=== PATIENT | female | born 1985 | race Caucasian/White ===

== ENCOUNTER 2017-11-25 11:13 | Inpatient (IN) | payer BC ==
[2017-11-25] MEDS ORDERED: NA CHLORIDE 0.9% 1,000 ML ONE (12:15)
[2017-11-25] MEDS ORDERED: ONDANSETRON 4 MG/2 ML VIAL ONE ×3 (12:15→16:42)
[2017-11-25] MEDS ORDERED: MORPHINE 4 MG/ML SYR ONE ×3 (12:15→16:42)
[2017-11-25 12:34] LABS: Absolute Lymphocytes (CBC) 1.4 K/uL (0.7-4.9); Absolute Monocytes 0.3 K/uL (0.1-1.3); Absolute Neutrophil 3.9 K/uL (1.8-8.0); Basophils % 0.3 % (0-1.3); Eosinophils % 1.3 % (0-4.4); Hematocrit 41.7 % (36.0-45.0); MCH 30.1 pg (27.0-35.0); MCV 86.7 fL (80-100); MPV 8.2 fL (7.6-11.3); Monocytes % 4.7 % (3.3-12.3); RBC Red Blood Cell Count 4.81 M/uL (3.86-4.86)
[2017-11-25 12:47] LABS: Urine Bacteria <20 /HPF (<20); Urine Culture Reflex Order REFLEXED; Urine Mucus 1+ /HPF (NONE SEEN); Urine RBC <5 /HPF (NONE SEEN)
[2017-11-25 12:58] LABS: Albumin 3.9 g/dL (3.4-5.0); Bilirubin Total 0.4 mg/dL (0.2-1.0); Potassium 4.4 mmol/L (3.5-5.1); Protein, Total 7.7 g/dL (6.4-8.2)
[2017-11-25 13:12] LABS: Urine Blood NEGATIVE (NEG); Urine Glucose NEGATIVE (NEG); Urine Protein NEGATIVE (NEG); Urine pH 6.5 (5.0-7.0)
--- NOTE | 2017-11-25 14:40 | RAD REPORT ---
EXAM DESCRIPTION: CTAbdomen Pelvis W Contrast - 11/25/2017 2:14 pm CLINICAL HISTORY: Abdominal pain. large hernia, possible obstruction COMPARISON: CTSTONE PROTOCOL dated 02/09/2013 TECHNIQUE: Biphasic CT imaging of the abdomen and pelvis was performed with 100 ml non-ionic IV cont rast. All CT scans are performed using dose optimization technique as appropriate and may include automated exposure control or mA/KV adjustment according to patient size. FINDINGS: The lung bases are clear. Mild diffuse fatty liver is present. Gastric banding is noted. The spleen, pancreas and adrenal gland s are normal. Mild atrophy of the right kidney is seen. Left kidney appears unremarkable A large complex right-sided flank hernia is identified. The hernia contains large bowel, omental fat and small bowel. Several of the small bowel loops appear mildly dilated. There is some inflammation i n the hernia sac. Anatomy within the hernia is quite distorted making full assessment quite challengi ng. A thick-walled rounded lesion is also noted along the lateral margin of the hernia sac of unclear etiology and significance. No free intraperitoneal air is seen. No suspicious bony findings. IMPRESSION: Large complex right-sided flank hernia noted containing large bowel, omental fat and sma ll bowel. Several of the small bowel loops appear mildly dilated which could indicate a mild bowel ob struction.
--- NOTE | 2017-11-25 15:57 | ER ---
Nurse's Notes [facility] Name: Janine Blood Age: 32 yrs Sex: Female : 1985 Arrival Date: 11/25/2017 Time: 11:17 Bed 30 Private MD: Diagnosis: small bowel obstruction Presentation: 11/25 11:40 Presenting complaint: Patient states: i am a lot of pain in my stomach, it started a hj day before yesterday, hx of hernia; reports bloody stools; reports nausea and vomiting; reports diarrhea;. Transition of care: patient was not received from another setting of care. Onset of symptoms was November 25, 2017. Risk Assessment: Do you want to hurt yourself or someone else? Patient reports no desire to harm self or others. Initial Sepsis Screen: Does the patient meet any 2 criteria? No. Patient's initial sepsis screen is negative. Does the patient have a suspected source of infection? No. Patient's initial sepsis screen is negative. Care prior to arrival: None. 11:40 Method Of Arrival: Ambulatory 11:40 Acuity: GOLDEN 3 hj Triage Assessment: 11:44 General: Appears in no apparent distress. uncomfortable, Behavior is calm, cooperative, hj appropriate for age. Pain: Complains of pain in abdomen Pain currently is 10 out of 10 on a pain scale. GI: Reports lower abdominal pain, nausea, vomiting. 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 - Social history:: Smoking status: Patient/guardian denies using tobacco, Patient/guardian denies using alcohol. - Ebola Screening: : Patient negative for fever greater than or equal to 101.5 degrees Fahrenheit, and additional compatible Ebola Virus Disease symptoms Patient denies exposure to infectious person Patient denies travel to an Ebola-affected area in the 21 days before illness onset. Screenin:44 Abuse screen: Denies threats or abuse. Denies injuries from another. Nutritional hj screening: No deficits noted. Tuberculosis screening: No symptoms or risk factors identified. Fall Risk None identified. Assessment: 12:05 General: Appears uncomfortable, obese, Behavior is cooperative. Pain: Complains of pain iw in right upper quadrant, right lower quadrant and left lower quadrant. Neuro: Level of Consciousness is awake, alert, obeys commands, Oriented to person, place, time, situation, Moves all extremities. Full function. Cardiovascular: Patient's skin is warm and dry. Respiratory: Respiratory effort is even, unlabored. GI: Abdomen is round obese, Pt is actively vomiting clear fluid, pt has large right abdominal hernia, tender to palpation hernia has been there X 5 years Bowel sounds present X 4 quads. Abdomen is tender to palpation in right lower quadrant Reports lower abdominal pain, upper abdominal pain. : Reports burning with urination. Derm: Skin is pink, warm \T\ dry. normal. Musculoskeletal: Range of motion: intact in all extremities. 12:37 Reassessment: pt finished drinking contrast. iw 12:48 Reassessment: Patient and/or family updated on plan of care and expected duration. Pain aa5 level reassessed. Patient is alert, oriented x 3, equal unlabored respirations, skin warm/dry/pink. Patient states feeling better. Pain: Pain currently is 5 out of 10 on a pain scale. 13:52 Reassessment: Patient and/or family updated on plan of care and expected duration. Pain aa5 level reassessed. Patient is alert, oriented x 3, equal unlabored respirations, skin warm/dry/pink. Pt taken to CT . Pain: Pain currently is 5 out of 10 on a pain scale. 14:24 Reassessment: Patient and/or family updated on plan of care and expected duration. Pain aa5 level reassessed. Patient is alert, oriented x 3, equal unlabored respirations, skin warm/dry/pink. Pt requesting pain and nausea medication, pt back from CT via wheelchair. . Pain: Pain currently is 10 out of 10 on a pain scale. GI: Reports nausea. 14:25 Reassessment: MD notified of pt's request for anti-nausea and pain medication. . aa5 16:09 Reassessment: patient seen by hospitalist on duty and advised to wait for disposition mg2 either to be admitted here or transfer to other facility. Vital Signs: 11:44 BP 130 / 109; Pulse 79; Resp 18; Temp 98.1(O); Pulse Ox 98% on R/A; Weight 132.9 kg; hj Height 5 ft. 4 in. (162.56 cm); Pain 10/10; 12:50 BP 134 / 82; Pulse 75; Resp 16 S; Pulse Ox 97% on R/A; aa5 14:29 BP 141 / 87; Pulse 70; Resp 16 S; Pulse Ox 97% on R/A; aa5 16:03 BP 140 / 91; Pulse 75; Resp 18; Pulse Ox 95% on R/A; Pain 2/10; mg2 17:00 BP 134 / 90; Pulse 73; Resp 18; Pulse Ox 100% on R/A; Pain 4/10; mg2 18:46 BP 140 / 99; Pulse 90; Resp 18; Temp 98(O); Pulse Ox 98% on R/A; Pain 3/10; mg2 20:04 BP 137 / 96; Pulse 73; Resp 18; Pulse Ox 99% on R/A; mg2 11:44 Body Mass Index 50.29 (132.90 kg, 162.56 cm) hj ED Course: 11:17 Patient arrived in ED. rg4 11:42 Triage completed. hj 11:44 Arm band placed on right wrist. hj 11:46 Patient has correct armband on for positive identification. Placed in gown. Bed in low hj position. Call light in reach. Side rails up X 1. Adult w/ patient. 11:53 Cooper Modi MD is Attending Physician. ps1 11:58 EKG done, by vein access technician. reviewed by Jovanny Kelley MD. at1 12:05 Pamela Kwon RN is Primary Nurse. iw 12:06 Inserted saline lock: 20 gauge in right antecubital area, using aseptic technique. iw Blood collected. 14:13 CT completed. Patient tolerated procedure well. Patient moved to CT via wheelchair. kw1 Patient moved back from CT. 14:15 CT Abd/Pelvis - W/Contrast In Process Unspecified. EDMS 14:59 Report given to TRE Savage. aa5 15:56 Aris Beckford DO is Hospitalizing Provider. ps1 16:55 First set of blood cultures drawn from right A/C via the IV. Flushed and discarded 10ml jp3 of blood prior to collecting blood sample. 17:20 Second set of blood cultures drawn drawn from left A/C via 21g butterfly needle. jp3 19:39 Primary Nurse role handed off by Pamela Kwon RN rg2 19:41 Isrrael Cooney, TRE is Primary Nurse. mg2 20:08 No provider procedures requiring assistance completed. Patient admitted, IV remains in mg2 place. Administered Medications: 12:24 Drug: morphine 4 mg Route: IVP; Site: right antecubital; iw 12:35 Follow up: Response: No adverse reaction aa5 12:24 Drug: Zofran 4 mg Route: IVP; Site: right antecubital; iw 12:35 Follow up: Response: No adverse reaction aa5 14:27 Drug: morphine 4 mg Route: IVP; Site: right antecubital; aa5 16:11 Follow up: Response: No adverse reaction; Pain is decreased mg2 14:27 Drug: Zofran 4 mg Route: IVP; Site: right antecubital; aa5 16:10 Follow up: Response: No adverse reaction; Nausea is decreased mg2 16:42 Drug: Zofran 4 mg Route: IVP; Site: right antecubital; mg2 18:47 Follow up: Response: No adverse reaction; Nausea is decreased mg2 16:43 Drug: morphine 4 mg Route: IVP; Site: right antecubital; mg2 18:47 Follow up: Response: No adverse reaction; Pain is decreased mg2 Outcome: 15:56 Decision to Hospitalize by Provider. ps1 20:15 Admitted to Med/surg mg2 20:15 Admitted to Med/surg accompanied by tech, via wheelchair, room 208, with chart, Report called to Nurse Kimberly 20:15 Condition: stable 20:15 Instructed on the need for admit, Demonstrated understanding of instructions. 20:22 Patient left the ED. mg2 Signatures: Dispatcher [employer] EDMS Gee Gore rg2 Pamela Kwon RN RN iw Chayito Adame RN RN aa5 Marleni askew, middleware administrator EKG Tat1 Ramin Gonzáles RN RN hj Garcia, Rubi rg4 Cooper Modi MD MD ps1 Keily Bowers kw1 Isrrael Cooney, TRE RN mg2 Irving Olson jp3 Corrections: (The following items were deleted from the chart) 11:50 11:44 Pulse 79bpm; Resp 18bpm; Pulse Ox 98% RA; Temp 98.1F Oral; 132.9 kg; Height 5 ft. hj 4 in.; BMI: 50.2; Pain 02/05; hj 11:51 11:44 Pulse 79bpm; Resp 18bpm; Pulse Ox 98% RA; Temp 98.1F Oral; 132.9 kg; Height 5 ft. hj 4 in.; BMI: 50.2; Pain 02/05; hj
--- NOTE | 2017-11-25 15:57 | EDPHYS ---
Physician Documentation [facility] Name: Janine Blood Age: 32 yrs Sex: Female : 1985 Arrival Date: 11/25/2017 Time: 11:17 Bed 30 Private MD: ED Physician Cooper Modi HPI: 11/25 15:23 This 32 yrs old Female presents to ER via Ambulatory with complaints of ps1 Vomiting, Bloody Stools. 15:23 patient has a large abdominal hernia. has not had repair 2/2 lack of insurance. Now has ps1 abdominal pain, n,v, and streaky bloody stools. Pain rated as moderate to severe. Lack of appetite. . 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 - Social history:: Smoking status: Patient/guardian denies using tobacco, Patient/guardian denies using alcohol. - Ebola Screening: : Patient negative for fever greater than or equal to 101.5 degrees Fahrenheit, and additional compatible Ebola Virus Disease symptoms Patient denies exposure to infectious person Patient denies travel to an Ebola-affected area in the 21 days before illness onset. ROS: 15:23 Constitutional: Negative for fever, chills, and weight loss, Eyes: Negative for injury, ps1 pain, redness, and discharge, Neck: Negative for injury, pain, and swelling, Cardiovascular: Negative for chest pain, palpitations, and edema, Respiratory: Negative for shortness of breath, cough, wheezing, and pleuritic chest pain, Back: Negative for injury and pain, MS/Extremity: Negative for injury and deformity, Skin: Negative for injury, rash, and discoloration, Neuro: Negative for headache, weakness, numbness, tingling, and seizure. 15:23 Abdomen/GI: Positive for abdominal pain, nausea, vomiting, and diarrhea, abdominal cramps, rectal bleeding. Exam: 15:23 Constitutional: This is a well developed, well nourished patient who is awake, alert, ps1 and in no acute distress. Head/Face: Normocephalic, atraumatic. Eyes: Pupils equal round and reactive to light, extra-ocular motions intact. Lids and lashes normal. Conjunctiva and sclera are non-icteric and not injected. Chest/axilla: Normal chest wall appearance and motion. Nontender with no deformity. No lesions are appreciated. Cardiovascular: Regular rate and rhythm. No gallops, murmurs, or rubs. Normal PMI, no JVD. No pulse deficits. Respiratory: Lungs have equal breath sounds bilaterally, clear to auscultation and percussion. No rales, rhonchi or wheezes noted. No increased work of breathing, no retractions or nasal flaring. 15:23 Abdomen/GI: Inspection: distension, obese large extraabdominal hernia. , Bowel sounds: high pitched, Palpation: mild abdominal tenderness. Vital Signs: 11:44 BP 130 / 109; Pulse 79; Resp 18; Temp 98.1(O); Pulse Ox 98% on R/A; Weight 132.9 kg; hj Height 5 ft. 4 in. (162.56 cm); Pain 10/10; 12:50 BP 134 / 82; Pulse 75; Resp 16 S; Pulse Ox 97% on R/A; aa5 14:29 BP 141 / 87; Pulse 70; Resp 16 S; Pulse Ox 97% on R/A; aa5 16:03 BP 140 / 91; Pulse 75; Resp 18; Pulse Ox 95% on R/A; Pain 2/10; mg2 17:00 BP 134 / 90; Pulse 73; Resp 18; Pulse Ox 100% on R/A; Pain 4/10; mg2 18:46 BP 140 / 99; Pulse 90; Resp 18; Temp 98(O); Pulse Ox 98% on R/A; Pain 3/10; mg2 20:04 BP 137 / 96; Pulse 73; Resp 18; Pulse Ox 99% on R/A; mg2 11:44 Body Mass Index 50.29 (132.90 kg, 162.56 cm) MDM: 11:58 Patient medically screened. ps1 11/25 12:03 Order name: Amylase, Serum; Complete Time: 13:05 ps1 11/25 12:03 Order name: CBC with Diff; Complete Time: 12:54 ps1 11/25 12:03 Order name: Lipase; Complete Time: 13:05 [facility] 11/25 12:03 Order name: Urine Microscopic Only; Complete Time: 12:54 [facility] 11/25 12:03 Order name: CMP; Complete Time: 13:05 [facility] 11/25 12:03 Order name: Type And Screen; Complete Time: 13:05 [facility] 11/25 12:03 Order name: CT Abd/Pelvis - W/Contrast; Complete Time: 14:45 [facility] 11/25 12:16 Order name: Urine Dipstick--Ancillary (enter results); Complete Time: 13:20 [facility] 11/25 12:16 Order name: Urine --Ancillary (enter results); Complete Time: 13:20 [facility] 11/25 12:49 Order name: Urine Culture EDGA 11/25 12:56 Order name: ABO/RH no charge; Complete Time: 13:05 [facility] 11/25 12:03 Order name: Urine Test (obtain specimen); Complete Time: 12:24 [facility] 11/25 12:03 Order name: IV Saline Lock; Complete Time: 12:07 [facility] 11/25 12:03 Order name: Labs collected and sent; Complete Time: 12:24 [facility] 11/25 12:03 Order name: Urine Dipstick-Ancillary (obtain specimen); Complete Time: 12:07 [facility] Administered Medications: 12:24 Drug: morphine 4 mg Route: IVP; Site: right antecubital; iw 12:35 Follow up: Response: No adverse reaction aa5 12:24 Drug: Zofran 4 mg Route: IVP; Site: right antecubital; iw 12:35 Follow up: Response: No adverse reaction aa5 14:27 Drug: morphine 4 mg Route: IVP; Site: right antecubital; aa5 16:11 Follow up: Response: No adverse reaction; Pain is decreased mg2 14:27 Drug: Zofran 4 mg Route: IVP; Site: right antecubital; aa5 16:10 Follow up: Response: No adverse reaction; Nausea is decreased mg2 16:42 Drug: Zofran 4 mg Route: IVP; Site: right antecubital; mg2 18:47 Follow up: Response: No adverse reaction; Nausea is decreased mg2 16:43 Drug: morphine 4 mg Route: IVP; Site: right antecubital; mg2 18:47 Follow up: Response: No adverse reaction; Pain is decreased mg2 Disposition: 11/25/17 15:56 Hospitalization ordered by Aris Beckford for Inpatient Admission. Preliminary diagnosis is small bowel obstruction. - Bed requested for Telemetry/MedSurg (Inpatient). - Status is Inpatient Admission. mg2 - Condition is Stable. - Problem is new. - Symptoms are unchanged. UTI on Admission? No Signatures: Dispatcher [employer] EDMS Gee Gore rg2 Pamela Kwon, RN RN iw Chayito Adame, RN RN aa5 Ramin Gonzáles, RN RN hj Cooper Modi MD MD ps1 Isrrael Cooney RN RN mg2 Corrections: (The following items were deleted from the chart) 19:53 15:56 Hospitalization Ordered by Aris Beckford DO for Inpatient Admission. Preliminary rg2 diagnosis is small bowel obstruction. Bed requested for Telemetry/MedSurg (Inpatient). Status is Inpatient Admission. Condition is Stable. Problem is new. Symptoms are unchanged. UTI on Admission? No. ps1 20:22 19:53 11/25/2017 15:56 Hospitalization Ordered by Aris Beckford DO for Inpatient mg2 Admission. Preliminary diagnosis is small bowel obstruction. Bed requested for Telemetry/MedSurg (Inpatient). Status is Inpatient Admission. Condition is Stable. Problem is new. Symptoms are unchanged. UTI on Admission? No. rg2
[2017-11-25] MEDS ORDERED: MORPHINE 4 MG/ML SYR IV PRN (16:31)
[2017-11-25] MEDS ORDERED: ACETAMINOPHEN 650MG/RECT SUPP PR PRN (16:31)
--- NOTE | 2017-11-25 17:03 | P.HP ---
Certification for Inpatient Patient admitted to: Inpatient With expected LOS: >2 Midnights Patient will require the following post-hospital care: None Practitioner: I am a practitioner with admitting privileges, knowledge of patient current condition, hospital course, and medical plan of care. Services: Services provided to patient in accordance with Admission requirements found in Title 42 Section 412.3 of the Code of Federal Regulations Patient History Date of Service: 11/25/17 Primary Care Provider: Dr. Gates([place], [place]) Reason for admission: Abdominal pain History of Present Illness: 32-year-old female presented emergency room with abdominal pain. Patient has history of a large complex ventral hernia on the right side. Patient reported abdominal pain, nausea and vomiting over the last 2 days. Pain got worse today. She rated the pain about a 10/10. She continued to have nausea and vomiting. She reports eating some popcorn last night. She denies any significant diarrhea. Patient came to the ER for further evaluation. In the ER patient was evaluated. Initial CBC and BMP unremarkable. CT scan shows a large complex right-sided flank hernia containing large bowel, omental fat and small bowel. Several small loops of bowel mildly dilated indicating mild bowel obstruction. Due to findings patient was admitted for treatment. I was asked to admit the patient. When I saw the patient ER, she appeared comfortable. Pain was noted to the right flank area. Patient with history of brain tumors with previous surgery. - Past Medical/Surgical History Diabetic: No -: Morbid obesity -: Complex right flank hernia -: History brain tumor with prior surgery -: Reflux from kidney -: Brain surgery to remove tumor -: Kidney surgery -: -: Hernia repair Psychosocial/ Personal History: The patient is . She has 2 children. 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 - Family History Father History Unknown: Yes Mother -: Heart disease, Hypertension, Cancer (Lung cancer) - Social History Smoking Status: Never smoker Alcohol use: Yes CD- Drugs: No Caffeine use: Yes Place of Residence: Home Review of Systems General: Weakness, As per HPI Eyes: Unremarkable ENT: Unremarkable Respiratory: Unremarkable Cardiovascular: Unremarkable Gastrointestinal: Nausea, Vomiting, Abdominal Pain, As per HPI Genitourinary: Unremarkable Musculoskeletal: Unremarkable Integumentary: Unremarkable Neurological: Unremarkable Lymphatics: Unremarkable Physical Examination - Physical Exam General: Alert, In no apparent distress, Oriented x3, Cooperative HEENT: Atraumatic, Normocephalic, PERRLA, Mucous membr. moist/pink Neck: Supple, No Thyromegaly Respiratory: Clear to auscultation bilaterally, Normal air movement Cardiovascular: Normal pulses, Regular rate/rhythm Gastrointestinal: Normal bowel sounds, Soft and benign, Non-distended, Other ( Patient morbidly obese with large pannus), Tenderness (Large flank hernia noted to the right side. Pain noted with palpation. No ecchymosis noted to the skin. ) Musculoskeletal: No erythema, No tenderness, No warmth Integumentary: No erythema, No warmth, No cyanosis Neurological: Normal speech, Normal strength at 5/5 x4 extr, Normal tone, Normal affect Lymphatics: No axilla or inguinal lymphadenopathy - Studies Laboratory Data (last 24 hrs) 11/25/17 12:05: WBC 5.7, Hgb 14.5, Hct 41.7, Plt Count 207 11/25/17 12:05: Sodium 140, Potassium 4.4, BUN 11, Creatinine 1.00, Glucose 99, Total Bilirubin 0.4, AST 25, ALT 39, Alkaline Phosphatase 56, Amylase 30, Lipase 112 Assessment and Plan - Problems (Diagnosis) (1) Small bowel obstruction Current Visit: Yes Status: Acute Plan: Patient with complex right flank hernia. Mild small-bowel obstruction noted. Patient will be admitted. Will provide medication for pain. Will continue IV fluids. Case discussed at length with surgery. Surgery will evaluate the patient tonight. Will need to monitor for any changes. If patient with increased pain or changes patient may require surgical intervention. I will turn the service over to Dr. Richardson tomorrow. I will go over the plan of care with her. (2) Abdominal hernia Current Visit: Yes Status: Chronic Plan: Continue as above Qualifiers: Hernia type: other abdominal hernia Obstruction and gangrene presence: with obstruction but without gangrene Qualified Code(s): K45.0 - Other specified abdominal hernia with obstruction, without gangrene (3) Obesity Current Visit: Yes Status: Chronic Plan: Will need a calculate BMI. Lifestyle modification education will be provided. Patient may benefit with bariatric surgery in the future. Discharge Plan: Home Plan to discharge in: 72 Hours - Advance Directives Does patient have a Living Will: No Does patient have a Durable POA for Healthcare: No - Code Status/Comfort Care Code Status Assessed: Yes Time Spent Managing Pts Care (In Minutes): 55
[2017-11-25] MEDS ORDERED: MINERAL OIL 30 ML UCUP GT ONE (20:53)
[2017-11-25] MEDS ORDERED: ONDANSETRON 4 MG/2 ML VIAL IV PRN (20:53)
--- NOTE | 2017-11-25 20:53 | P.CNS ---
Date of Consult: 11/25/17 PC: This 5o-year-old female presents emergency room with abdominal pain for diagnosis and treatment. HPC: Patient has been having severe abdominal pain since yesterday. Ate some popcorn. Shortly after she ate, she noted she was having severe hard cramping abdominal pain. Actually located more in her back then in her side. Since then has been on comfortable, was vomiting earlier, now just continuously belching. PMH: History of a brain tumor PSHx: Previous pituitary surgery and radiation therapy. Had a nephrectomy in the past, 5 years ago developed a hernia on that side. SOC: Allergic to sulfa, trimethoprim, SYS REVIEW: No cough, wheeze, shortness of breath. No recent chest pain or palpitations. States that she is being evaluated for possible pressure on her optic nerve, but has no changes in her vision that she could described. Hernia has been stable for this last 5 months. O/E awake alert uncomfortable at the moment HEENT: Within normal limits Chest: Chest movement equal bilaterally ABD: Patient has a large hernia on her right side. On palpation it is soft, minimal tenderness, but is not reducible. LOCO: Intact DATA: CT scan reviewed IMPRESSION: Possible early small-bowel obstruction PLAN: Keep NPO for now. Will give the patient some pain medicine and some Valium. Will also add in some mineral oil. I am anticipating this to resolve spontaneously. She does not require surgery tonight.
[2017-11-25] MEDS: ONDANSETRON 4 MG/2 ML VIAL IV PRN (21:16)
[2017-11-25] MEDS: NA CHLORIDE 0.9% 1,000 ML IV SCH (21:16)
[2017-11-25] MEDS: MORPHINE 4 MG/ML SYR IV PRN (21:17)
[2017-11-25] MEDS: ENOXAPARIN 40 MG/0.4 ML SQ SCH (21:24)
[2017-11-25] MEDS ORDERED: DIAZEPAM 5 MG TABLET PO ONE (22:46)
[2017-11-25] MEDS ORDERED: SODIUM CHLORIDE 0.9% 10ML INJ IV PRN (22:46)
[2017-11-26 00:42] LABS: Barbiturates NEGATIVE (NEGATIVE); Benzodiazepines NEGATIVE (NEGATIVE); Cocaine NEGATIVE (NEGATIVE); METHAMPHETAM NEGATIVE (NEGATIVE); Methadone NEGATIVE (NEGATIVE); Opiates POSITIVE (NEGATIVE); Phencyclidine NEGATIVE (NEGATIVE); THC Cannibis POSITIVE (NEGATIVE)
[2017-11-26] MEDS: MORPHINE 4 MG/ML SYR IV PRN ×2 (00:47→05:46)
[2017-11-26 00:49] LABS: Urine Appearance CLEAR; Urine Bilirubin NEGATIVE (NEG); Urine Blood NEGATIVE (NEG); Urine Color YELLOW; Urine Glucose NEGATIVE (NEG); Urine Protein NEGATIVE (NEG); Urine Specific Gravity 1.025 (1.005-1.030); Urine Urobilinogen 0.2 mg/dL (0.2-1.0)
[2017-11-26 00:50] LABS: Urine Microscopic Reflex ORDER UMIC
[2017-11-26 01:17] LABS: Urine Culture Reflex Order NOT NEEDED
[2017-11-26 01:18] LABS: Urine Bacteria <20 /HPF (<20); Urine RBC <5 /HPF (NONE SEEN)
[2017-11-26] MEDS: ONDANSETRON 4 MG/2 ML VIAL IV PRN ×2 (05:42→11:24)
[2017-11-26] MEDS: NA CHLORIDE 0.9% 1,000 ML IV SCH ×3 (05:42→22:20)
[2017-11-26 05:48] LABS: Absolute Lymphocytes (CBC) 1.3 K/uL (0.7-4.9); Absolute Monocytes 0.3 K/uL (0.1-1.3); Absolute Neutrophil 2.9 K/uL (1.8-8.0); Basophils % 0.2 % (0-1.3); Eosinophils % 3.3 % (0-4.4); Hematocrit 36.1 % (36.0-45.0); Lymphocytes % 27.9 % (15.3-44.8); MCH 30.3 pg (27.0-35.0); MCV 86.9 fL (80-100); Monocytes % 5.7 % (3.3-12.3); RBC Red Blood Cell Count 4.15 M/uL (3.86-4.86)
[2017-11-26 05:57] LABS: Magnesium 2.3 mg/dL (1.8-2.4); Potassium 4.1 mmol/L (3.5-5.1); Thyroid Stimulating Hormone 0.32 uIU/mL (0.36-3.74)
[2017-11-26] MEDS ORDERED: MINERAL OIL 30 ML UCUP GT ONE (07:38)
[2017-11-26] MEDS: ENOXAPARIN 40 MG/0.4 ML SQ SCH (09:26)
[2017-11-26] MEDS: PANTOPRAZOLE 40 MG INJ IVP SCH (09:26)
[2017-11-26] MEDS: LORAZEPAM 1 MG TABLET PO PRN ×2 (11:22→17:16)
--- NOTE | 2017-11-26 13:58 | P.PN ---
Subjective Date of Service: 11/26/17 Primary Care Provider: Dr. Gates([place], [place]) Chief Complaint: Abdominal pain Subjective: No new changes, Tolerating diet, Doing well Review of Systems General: As per HPI Physical Examination - Vital Signs Temperature: 97.6 F Blood Pressure: 137/79 Pulse: 71 Respirations: 16 Pulse Ox (%): 96 - Physical Exam General: Alert, In no apparent distress HEENT: Atraumatic, PERRLA, EOMI Neck: Supple, JVD not distended Respiratory: Clear to auscultation bilaterally, Normal air movement Cardiovascular: Regular rate/rhythm, Normal S1 S2 Gastrointestinal: Normal bowel sounds, No tenderness Musculoskeletal: No tenderness Integumentary: No rashes Neurological: Normal speech, Normal tone, Normal affect Lymphatics: No axilla or inguinal lymphadenopathy - Studies Medications List Reviewed: Yes Assessment & Plan - Problems (Diagnosis) (1) Small bowel obstruction Current Visit: Yes Status: Acute Plan: Large Complex hernia with Bowel Obstruction -Surgery Consulted. Appreciated Reccs -IV fluids and CLD -Awaiting clinical Improvement (2) Cannabis abuse Current Visit: Yes Status: Acute Plan: UDS + for THC -Bowel Ileus is a possibility -Pt educated Extensively on diet and exercise and abstain from THC (3) Abdominal hernia Current Visit: Yes Status: Chronic Plan: See#1 -Nonsurgical At this time per Surgery Qualifiers: Hernia type: other abdominal hernia Obstruction and gangrene presence: with obstruction but without gangrene Qualified Code(s): K45.0 - Other specified abdominal hernia with obstruction, without gangrene (4) Obesity Current Visit: Yes Status: Chronic Qualifiers: Obesity type: due to excess calories Obesity classification: adult class 3 (BMI >= 40) Serious obesity comorbidity presence: without serious comorbidity Body mass index: BMI 50.0-59.9 Qualified Code(s): E66.01 - Morbid (severe) obesity due to excess calories; Z68.43 - Body mass index (BMI) 50-59.9 , adult Discharge Plan: Other Plan to discharge in: 24 Hours - Code Status/Comfort Care Code Status Assessed: Yes Critical Care: No
[2017-11-26] MEDS: ACETAMINOPHEN 500 MG TAB PO PRN (22:20)
[2017-11-27] MEDS: LORAZEPAM 1 MG TABLET PO PRN (03:40)
[2017-11-27] MEDS: ONDANSETRON 4 MG/2 ML VIAL IV PRN (05:02)
[2017-11-27] MEDS: ACETAMINOPHEN 500 MG TAB PO PRN ×2 (05:03→08:56)
[2017-11-27 05:30] LABS: Absolute Lymphocytes (CBC) 1.4 K/uL (0.7-4.9); Absolute Monocytes 0.4 K/uL (0.1-1.3); Absolute Neutrophil 7.3 K/uL (1.8-8.0); Basophils % 0.6 % (0-1.3); Eosinophils % 0.5 % (0-4.4); Hematocrit 43.7 % (36.0-45.0); Lymphocytes % 15.6 % (15.3-44.8); MCV 85.2 fL (80-100); MPV 8.2 fL (7.6-11.3); Monocytes % 4.5 % (3.3-12.3); RBC Red Blood Cell Count 5.13 M/uL (3.86-4.86)
[2017-11-27 05:55] LABS: Magnesium 2.5 mg/dL (1.8-2.4); Potassium 3.7 mmol/L (3.5-5.1)
[2017-11-27] MEDS ORDERED: KCL 20 MEQ/100 mL IVPB 20 MEQ/100 ML BAG IV SCH (06:00)
[2017-11-27] MEDS ORDERED: MORPHINE 4 MG/ML SYR IV PRN (08:54)
[2017-11-27] MEDS ORDERED: MORPHINE 2 MG/ML SYR IV PRN (08:54)
[2017-11-27] MEDS ORDERED: DIAZEPAM 5 MG TABLET PO ONE ×2 (08:55→20:06)
[2017-11-27] MEDS: PANTOPRAZOLE 40 MG INJ IVP SCH (08:57)
[2017-11-27] MEDS: ENOXAPARIN 40 MG/0.4 ML SQ SCH (08:57)
[2017-11-27] MEDS: NA CHLORIDE 0.9% 1,000 ML IV SCH ×3 (08:57→21:54)
--- NOTE | 2017-11-27 09:05 | P.PN ---
Date of Service: 11/27/17 S: Patient is sometime SC and vomiting last night. Was taken off refer pain medicine. Today she feels slightly better, but still having discomfort. O: Hernia sac feels softer today. Has occasional bowel sounds and it A: Seems to be improved. I am reluctant to place a nasogastric tube in view of the patient's prior pituitary surgery. P: Resume patient's pain medicine, encourage patient ambulate, I will try to transfer patient to hernia Center.
[2017-11-27] MEDS: MORPHINE 4 MG/ML SYR IV PRN ×4 (09:43→21:52)
--- NOTE | 2017-11-27 13:36 | P.PN ---
Subjective Date of Service: 11/27/17 Primary Care Provider: Dr. Gates([place], [place]) Chief Complaint: Abdominal pain Patient seen and examined at bedside with RN. Chart reviewed. Case discussed with surgery. Surgery will be resuming care for this patient as primary providers here in the hospital. Medicine team will be consulted in available for any medical management at this time. Review of Systems General: As per HPI Physical Examination - Vital Signs Temperature: 98.1 F Blood Pressure: 115/64 Pulse: 76 Respirations: 20 Pulse Ox (%): 95 - Physical Exam General: Alert, In no apparent distress, Obese HEENT: Atraumatic, PERRLA, EOMI Neck: Supple, JVD not distended Respiratory: Clear to auscultation bilaterally, Normal air movement Cardiovascular: Regular rate/rhythm, Normal S1 S2 Gastrointestinal: Normal bowel sounds, No tenderness Musculoskeletal: No tenderness Integumentary: No rashes Neurological: Normal speech, Normal tone, Normal affect Lymphatics: No axilla or inguinal lymphadenopathy - Studies Microbiology Data (last 24 hrs): 11/25/17 12:10 Clean Catch Urine [place] Count - Final <10,000 CFU/ML. 11/25/17 12:10 Clean Catch Urine - Final Medications List Reviewed: Yes Assessment & Plan - Problems (Diagnosis) (1) Small bowel obstruction Onset Date: 11/26/17 Current Visit: Yes Status: Acute Plan: Large Complex hernia with Bowel Obstruction -Surgery primary now. -IV fluids and CLD -Awaiting transfer to the Higher Level of care for hernia repair (2) Cannabis abuse Onset Date: 11/26/17 Current Visit: Yes Status: Acute Plan: UDS + for THC -Bowel Ileus is a possibility -Pt educated Extensively on diet and exercise and abstain from THC (3) Abdominal hernia Onset Date: 11/26/17 Current Visit: Yes Status: Chronic Plan: See#1 -Awaiting transfer to Higher level of care Qualifiers: Hernia type: other abdominal hernia Obstruction and gangrene presence: with obstruction but without gangrene Qualified Code(s): K45.0 - Other specified abdominal hernia with obstruction, without gangrene (4) Obesity Onset Date: 11/26/17 Current Visit: Yes Status: Chronic Qualifiers: Obesity type: due to excess calories Obesity classification: adult class 3 (BMI >= 40) Serious obesity comorbidity presence: without serious comorbidity Body mass index: BMI 50.0-59.9 Qualified Code(s): E66.01 - Morbid (severe) obesity due to excess calories; Z68.43 - Body mass index (BMI) 50-59.9 , adult Discharge Plan: Transfer Plan to discharge in: 24 Hours - Code Status/Comfort Care Code Status Assessed: Yes Critical Care: No
[2017-11-27] MEDS ORDERED: MINERAL OIL 30 ML UCUP GT ONE (20:05)
--- NOTE | 2017-11-27 20:11 | P.PN ---
Date of Service: 11/27/17 S: The patient appears to have made some progress today. Has been up ambulating. Appears much more comfortable this evening. Still no bowel movements. However states that the hernia feel softer today. O: Vital signs remain stable, hernia sac minimal tenderness when palpated A: Patient is surgically stable however worrisome for still no bowel movements. Still is NPO. P: I am trying to contact 1 of the hernia surgeons to try and discuss the case with him. I feel that she is going to need an abdominal wall reconstruction. If her partial small bowel/ileus resolves, this could be handled on outpatient basis. However I have not been able to contact the gentleman in question but had not gone through the transfer center yet. If tomorrow, there are not more positive signs of this problem resolving, will attempt transfer on a more emergent basis. I have discussed this at length with the patient. She has had this hernia for a number of years, and realizes that she needs a more definitive repair. She would prefer to do it as an outpatient, so that she could be in better shape for her surgery.
[2017-11-27] MEDS ORDERED: MINERAL OIL 30 ML UCUP ONE (22:16)
[2017-11-28] MEDS: MORPHINE 4 MG/ML SYR IV PRN ×7 (03:24→21:50)
[2017-11-28] MEDS: NA CHLORIDE 0.9% 1,000 ML IV SCH ×2 (03:25→17:07)
[2017-11-28 05:00] LABS: Absolute Lymphocytes (CBC) 1.3 K/uL (0.7-4.9); Absolute Monocytes 0.2 K/uL (0.1-1.3); Absolute Neutrophil 2.1 K/uL (1.8-8.0); Basophils % 0.2 % (0-1.3); Eosinophils % 3.7 % (0-4.4); Hematocrit 33.8 % (36.0-45.0); Lymphocytes % 33.9 % (15.3-44.8); MCH 30.4 pg (27.0-35.0); MCV 87.2 fL (80-100); MPV 7.8 fL (7.6-11.3); Monocytes % 6.2 % (3.3-12.3); RBC Red Blood Cell Count 3.88 M/uL (3.86-4.86)
[2017-11-28 05:29] LABS: Magnesium 2.2 mg/dL (1.8-2.4); Potassium 3.7 mmol/L (3.5-5.1)
[2017-11-28] MEDS ORDERED: KCL 20 MEQ/100 mL IVPB 20 MEQ/100 ML BAG IV SCH (06:00)
[2017-11-28] MEDS: ENOXAPARIN 40 MG/0.4 ML SQ SCH (08:50)
[2017-11-28] MEDS: PANTOPRAZOLE 40 MG INJ IVP SCH (08:51)
[2017-11-28] MEDS ORDERED: MINERAL OIL 30 ML UCUP PO ONE (11:44)
[2017-11-28] MEDS ORDERED: MAGNESIUM CITRATE 300 ML BOT PO SCH (12:00)
--- NOTE | 2017-11-28 14:18 | P.PN ---
Subjective Date of Service: 11/28/17 Primary Care Provider: Dr. Gates([place], [place]) Chief Complaint: Abdominal pain Patient seen and examined at bedside with RN. Chart reviewed. surgery primary at this time. No acute events overnight. awaiting transfer to [place] for hernia repair Review of Systems General: As per HPI Physical Examination - Vital Signs Temperature: 97.6 F Blood Pressure: 135/81 Pulse: 70 Respirations: 20 Pulse Ox (%): 95 - Physical Exam General: In no apparent distress, Obese, Other (appears a little Drowsy. ) HEENT: Atraumatic Neck: Supple, JVD not distended Respiratory: Clear to auscultation bilaterally, Normal air movement Cardiovascular: Regular rate/rhythm, Normal S1 S2 Gastrointestinal: Normal bowel sounds, No tenderness Musculoskeletal: No tenderness Integumentary: No rashes Neurological: Normal speech, Normal tone, Normal affect Lymphatics: No axilla or inguinal lymphadenopathy - Studies Medications List Reviewed: Yes Assessment & Plan - Problems (Diagnosis) (1) Small bowel obstruction Onset Date: 11/26/17 Current Visit: Yes Status: Acute Plan: Large Complex hernia with Bowel Obstruction -Surgery primary now. -IV fluids and CLD -Awaiting transfer to the Higher Level of care for hernia repair (2) Cannabis abuse Onset Date: 11/26/17 Current Visit: Yes Status: Acute Plan: UDS + for THC -Bowel Ileus is a possibility -Pt educated Extensively on diet and exercise and abstain from THC (3) Abdominal hernia Onset Date: 11/26/17 Current Visit: Yes Status: Chronic Plan: See#1 -Awaiting transfer to Higher level of care Qualifiers: Hernia type: other abdominal hernia Obstruction and gangrene presence: with obstruction but without gangrene Qualified Code(s): K45.0 - Other specified abdominal hernia with obstruction, without gangrene (4) Obesity Onset Date: 11/26/17 Current Visit: Yes Status: Chronic Qualifiers: Obesity type: due to excess calories Obesity classification: adult class 3 (BMI >= 40) Serious obesity comorbidity presence: without serious comorbidity Body mass index: BMI 50.0-59.9 Qualified Code(s): E66.01 - Morbid (severe) obesity due to excess calories; Z68.43 - Body mass index (BMI) 50-59.9 , adult Discharge Plan: Transfer Plan to discharge in: 24 Hours - Code Status/Comfort Care Code Status Assessed: Yes Critical Care: Yes
--- NOTE | 2017-11-28 16:49 | P.PN ---
Date of Service: 11/28/17 S: Patient has had no vomiting last night. However she still since this he is having some pain on her right side. Has been up ambulating, voiding on her own, but still no bowel movements. O: Vital signs remain stable A: Surgically stable P: Patient has not opened up yet. I have discussed this with the patient. We had planned on sending her electively in for hernia repair to [place] however in view of the fact that she is still not having bowel movements, I have spoken to Dr. Jayy Moody. I have explained him the situation and that my interpretation of the patient's issues are that should she require surgery, she would do better had AE more tertiary facility. I spoke to 1 of my colleagues, and Dr. Moody is highly recommended. I spoke to him and he has been kind enough to accept the patient. The transfer to [facility] is being arranged. In the meantime, we will continue current therapy until the transfer occurs.
== END 2017-11-28 21:43 | disposition short-term general hospital (02) | DRG 394 ==
LOC: ER 11:13 → ERHOLD 16:17 → 2ND 19:47
PROVIDERS: ADMIT Family Medicine; ATTEND Surgery
DX: K45.0 Other specified abdominal hernia with obstruction, without gangrene (principal); Z68.43 Body mass index [BMI] 50.0-59.9, adult; E66.01 Morbid (severe) obesity due to excess calories; F12.10 Cannabis abuse, uncomplicated; Z88.2 Allergy status to sulfonamides; Z86.011 Personal history of benign neoplasm of the brain; Z90.5 Acquired absence of kidney
CPT/HCPCS: 36415; 74177; 80048; 80053; 80307; 81003; 81015; 81025; 82150; 83690; 83735; 84439; 84443; 85025; 86850; 86900; 86901; 87040; 87086; 87088; 87205; 96374; 96375; 99285; C9113; J1650; J2405; J7030; Q9967

== ENCOUNTER 2019-05-25 11:15 | Emergency (ER) | payer BC ==
--- OUTSIDE RECORDS SUMMARY | 2019-05-25 11:19 | XMS REPORT ---
:1985 [facility] Address [address] [place] [address] [address] [place] [address] Care Team Providers Name Role Phone Unavailable Unavailable Unavailable Problems This patient has no known problems. Allergies, Adverse Reactions, Alerts This patient has no known allergies or adverse reactions. Medications This patient has no known medications.
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
--- OUTSIDE RECORDS SUMMARY | 2019-05-25 11:20 | XMS REPORT | Summary of Care ---
:1985 Author Organization [facility] Address [address] [place] [address] Care Team Providers Name Role Phone Kristyn Abrams Primary Care Provider Reason for Visit Reason Comments Rx Concern/Question Encounter Details Date Type Department Care Team Description 11/25/2018 Telephone [facility] Shaneka Wheeler Rx Concern/Question Center- Trish Aranda MD [address] [facility], [address] [facility] [place] [address] [place], [place] [phone] Allergies Active Allergy Reactions Severity Noted Date Comments Cephalexin Hives, Nausea and/or 01/25/2015 Vomiting Sulfa (Sulfonamide Hives 01/19/2013 Antibiotics) documented as of this encounter (statuses as of 11/25/2018) Medications Medication Sig Dispensed Refills Start Date End Date Status LEVOFLOXACIN Take by mouth. 0 Active (LEVAQUIN ORAL) NITROFURANTOIN Take by mouth 0 Active MONOHYD/M-CRYST at bedtime. (MACROBID ORAL) LORazepam (ATIVAN) Take 1 tablet by 2 tablet 0 08/20/2017 Active 0.5 mg mouth as needed tabletIndications: (Take one tablet Pituitary adenoma as needed prior to MRI study on 09/16/17 for anxiety). HYDROcodone-acetamin Take 1 tablet by 120 tablet 0 09/02/2017 Active ophen (NORCO) 10-325 mouth every 6 mg tablet (six) hours as needed for Pain (scale 7-10). ondansetron HCl Take by mouth. 0 Active (ZOFRAN ORAL) acetaminophen Take by mouth 0 Active (TYLENOL) 325 mg every 6 (six) tablet hours as needed. proMETHazine Insert 1 60 Suppository 1 10/31/2018 Active (PHENERGAN) 12.5 mg Suppository into suppositoryIndicatio rectum every 4 ns: Pituitary (four) hours as adenoma needed for Nausea and Vomiting (N/V). documented as of this encounter (statuses as of 11/25/2018) Active Problems Problem Noted Date Brain mass 03/03/2014 Obesity, morbid, BMI 50 or higher 02/22/2014 Pituitary adenoma 02/11/2014 Persistent headaches 02/09/2014 Pituitary mass 02/09/2014 documented as of this encounter (statuses as of 11/25/2018) Social History Tobacco Use Types Packs/Day Years Used Date Never Smoker Alcohol Use Drinks/Week oz/Week Comments No 0 Standard drinks or equivalent 0.0 Sex Assigned at Date Recorded Not on file Job Start Date Occupation Industry Not on file Not on file Not on file Travel History Travel Start Travel End No recent travel history available. documented as of this encounter Last Filed Vital Signs Not on filedocumented in this encounter Plan of Treatment Date Type Specialty Care Team Description 11/06/2019 Office Visit Radiation Therapy Norberto Luis MD [id number] [place], [place] [id number] Health Maintenance Due Date Last Done Comments VARICELLA VACCINES (1 of 2 - 13+ 2000 2-dose series) DTaP,Tdap,and Td Vaccines (1 - 2006 Tdap) PAP SMEAR 2008 INFLUENZA VACCINE 12/28/2018 PNEUMOCOCCAL 0-64 YEARS COMBINED Aged Out No longer eligible based on SERIES patient's age to complete this topic documented as of this encounter Implants Implanted Type Area Supervisor Dials Device Shelf Model / Identifier Expiration Serial / Date Lot Duraseal, Covidien Improved Dural Sealant System 5ml #[id number] - [id number] Duraseal N/A: Head [employer]/Covidien 04/28/2015 [id number] / Implanted: Qty: 1 on 03/05/2014 by Quinn Olivera at [facility] / [id number] documented as of this encounter Results Not on filedocumented in this encounter Insurance Payer Benefit Plan Subscriber ID Effective Dates Phone Address Type / Group BC OF [facility] [id number] 2017-Sofi [phone] [address] PPO/POS [place] - OUT OF t 7 [id number] [place] [address] documented as of this encounter
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
--- OUTSIDE RECORDS SUMMARY | 2019-05-25 11:20 | XMS REPORT | Summary of Care ---
:1985 Author Organization [facility] - Health Address [address] [place] [address] Care Team Providers Name Role Phone Kristyn Abrams Primary Care Provider Reason for Visit Reason Comments Rx Concern/Question eyeglass prescription Encounter Details Date Type Department Care Team Description 11/25/2018 Telephone [facility] Eye Shaneka Wheeler Rx Concern/Question Center- [place]annel[place]e Aranda MD (eyeglass [address], [address] [facility]. prescription) [address] [place] [address] [place], [place] [phone] Allergies Active Allergy Reactions Severity Noted Date [...] Therapy Norberto Luis MD [address] [id number] [place], [place] [id number] Health Maintenance Due Date Last Done Comments VARICELLA VACCINES (1 of 2 - 13+ 2000 2-dose series) DTaP,Tdap,and Td Vaccines (1 - 2006 Tdap) PAP SMEAR 2008 INFLUENZA VACCINE 12/28/2018 PNEUMOCOCCAL 0-64 YEARS COMBINED Aged Out No longer eligible based on SERIES patient's age to complete this topic documented as of this encounter Implants Implanted Type Area Desktop Publisher Device Shelf Model / Identifier Expiration Serial / Date Lot Duraseal, Covidien Improved Dural Sealant System 5ml #[id number] - [id number] Duraseal N/A: Head Tyco/Covidien 04/28/2015 [id number] / Implanted: Qty: 1 on 03/05/2014 by Quinn Olivera at [facility] / [id number] documented as of this encounter Results Not on filedocumented in this encounter Insurance Payer Benefit Plan Subscriber ID Effective Dates Phone Address Type / Group BCBS OF [facility] [id number]-Sofi [phone] [address] PPO/POS [place] - OUT OF t [id number] [place] [address] documented as of this encounter
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
--- OUTSIDE RECORDS SUMMARY | 2019-05-25 11:22 | XMS REPORT | Summary of Care ---
:1985 Author Organization [facility] - [facility] Address [address] [place] [address] Care Team Providers Name Role Phone Senthil Crowder Gurmeet Primary Care Provider Reason for Referral (Routine) Status Reason Specialty Diagnoses / Referred By Referred To Procedures Contact Contact New Request Endocrinology Diagnoses Pituitary adenoma Ricco Chaney, Diabetes & Procedures CONSULT/REFERRAL ENDOCRINOLOGY Other (see comments); Preferred Location: [facility] MD Hector [address] [place] [phone] [place], [place] Phone: [phone] Phone: Reason for Visit Reason Comments Follow-up (Routine) Status Reason Specialty Diagnoses / Referred By Referred To Procedures Contact Contact New Request Neurology Diagnoses Pituitary adenoma Norberto Luis Procedures CONSULT/REFERRAL NEUROLOGY MD Chang [address] [place] [address] [id number] [place] [address] Encounter Details Date Type Department Care Team Description 12/30/2018 Office Visit [facility] Ricco Chaney Complicated headache syndromes (Primary Dx); Neurology-Jaxon Young MD Pituitary adenoma [address] [place] [address] Drive, [address] [place] [phone] Allergies Active Allergy Reactions Severity Noted Date Comments Cephalexin Hives, Nausea and/or 01/25/2015 Vomiting Sulfa (Sulfonamide Hives 01/19/2013 Antibiotics) documented as of this encounter (statuses as of 01/06/2019) Medications Medication Sig Dispensed Refills Start Date [...] adenoma needed for Nausea and Vomiting (N/V). PARoxetine 20 mg TAKE 1 TABLET BY 4 11/30/2018 Active tablet MOUTH EVERY NIGHT AT BEDTIME QUEtiapine 50 mg TAKE 1 TABLET BY 4 11/10/2018 Active tablet MOUTH EVERY NIGHT AT BEDTIME clonazePAM 1 mg TAKE 1 TABLET BY 5 12/14/2018 Active tablet MOUTH AT BEDTIME traMADol 50 mg 0 12/26/2018 Active tablet divalproex Take 1 tablet by 60 tablet 0 12/30/2018 Active (DEPAKOTE) 125 mg EC mouth 2 (two) tablet times daily. documented as of this encounter (statuses as of 01/06/2019) Active Problems Problem Noted Date Brain mass 03/03/2014 Obesity, morbid, BMI 50 or higher 02/22/2014 Pituitary adenoma 02/11/2014 Persistent headaches 02/09/2014 Pituitary mass 02/09/2014 documented as of this encounter (statuses as of 01/06/2019) Social History Tobacco Use Types Packs/Day Years [...] of this encounter Last Filed Vital Signs Vital Sign Reading Time Taken Comments Blood Pressure 125/84 12/30/2018 11:01 AM CDT Pulse 85 12/30/2018 11:01 AM CDT Temperature 36.4 C (97.6 F) 12/30/2018 11:01 AM CDT Respiratory Rate 18 12/30/2018 11:01 AM CDT Oxygen Saturation - - Inhaled Oxygen Concentration - - Weight 123.4 kg (272 lb 1 oz) 12/30/2018 11:01 AM CDT Height 162.6 cm (5' 4") 12/30/2018 11:01 AM CDT Body Mass Index 46.7 12/30/2018 11:01 AM CDT documented in this encounter Progress Notes Ricco Chaney MD - 12/30/2018 11:20 AM CDT I have verified the medical student documentation and/or findings, including the history, physical exam, and medical decision making. Additionally, I have personally performed or re-performed the physical exam and medical decision making activities of this patient's evaluation and management service. Ricco Chaney MD Keyboard Action Assembler Neurology HISTORY OF PRESENT ILLNESS: Janine Blood is a 32 year old female. Chief complaint: Several issues, main referral is for headaches. Update 12/30/2018: patient still endorses weekly headaches that feel like pressure on the back of her head that improve w lying down and excedrin. Also has pounding headaches w N/V 3-4 times a week. Has been seen by Optho 01/14 who saw no evidence of papilledema. Most recent MRI 10/24/18 stable from one year ago. Complains of occasional clear discharge from nose that causes her to vomit. Needs referral to Endocrine to follow up on lab abnormalities as patient was told they are not accepting new patients. Currently being worked up for possible Lupus by PCP. 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 She recently had an MRI study, which had shown abnormalities but according to the patient it was thought to have been stable. She did say she had been concerned that there were changes in the tumor, but she had been given a surgical follow-up in one year. She also does have endocrinology and radiation therapy following her. She also did say that she had been to the eye Doctor recently, and her prescription had been changed, but no other issues had been raised. I am not sure that this is actually an data operations leader that she had seen. She did say that with her vision, sometimes she will see spots periodically and at random, they are "kind of colored". She has had pain, this is like pressure points on the top of her head, pulling her hair makes it worse. She started getting these head pains more about a month ago. Shedid say that sometimes however, she can get pains lastimg hours or days. 3 weeks was the longest, this type of headache has been getting worse for about the last 6 weeks. She also said that sometimes she may get dizzy. There has also been a history of reported seizures, which result in loss of consciousness, jerking, choking, not being able to respond during the episodes and then post episode feelingtired. She said that she has been told that she was "convulsing". No EEGs were in the system to review and also she currently is not on any anticonvulsant medications. Radiology: MRI 10/24/18 Impression: "Postsurgical changes of transsphenoidal pituitary tumor resection and radiation therapy are again noted. The residual enhancing tissue in the left aspect of the sella extending predominantly into the left cavernous sinus is redemonstrated and grossly unchanged to slightly decreased in size from the prior study." PMH: has a past medical history of Hypertension, Morbid obesity, and Pituitary tumor. Current Outpatient Medications: clonazePAM 1 mg tablet, TAKE 1 TABLET BY MOUTH AT BEDTIME, Disp: , Rfl: 5 divalproex (DEPAKOTE) 125 mg EC tablet, Take 1 tablet by mouth 2 (two) times daily., Disp: 60 tablet, Rfl: 0 PARoxetine 20 mg tablet, TAKE 1 TABLET BY MOUTH EVERY NIGHT AT BEDTIME, Disp: , Rfl: 4 QUEtiapine 50 mg tablet, TAKE 1 TABLET BY MOUTH EVERY NIGHT AT BEDTIME, Disp: , Rfl: 4 traMADol 50 mg tablet, , Disp: , Rfl: LEVOFLOXACIN (LEVAQUIN ORAL), Take by mouth., Disp: , Rfl: proMETHazine (PHENERGAN) 12.5 mg suppository, Insert 1 Suppository into rectum every 4 (four) hours as needed for Nausea and Vomiting (N/V)., Disp: 60 Suppository, Rfl: 1 acetaminophen (TYLENOL) 325 mg tablet, Take by mouth every 6 (six) hours as needed., Disp: , Rfl: ondansetron HCl (ZOFRAN ORAL), Take by mouth., Disp: , Rfl: HYDROcodone-acetaminophen (NORCO) 10-325 mg tablet, Take 1 tablet by mouth every 6 (six) hours as needed for Pain (scale 7-10)., Disp: 120 tablet, Rfl: 0 LORazepam (ATIVAN) 0.5 mg tablet, Take 1 tablet by mouth as needed (Take one tablet as needed prior to MRI study on 09/16/17 for anxiety)., Disp: 2 tablet, Rfl: 0 NITROFURANTOIN MONOHYD/M-CRYST (MACROBID ORAL), Take by mouth at bedtime. , Disp: , Rfl: Family History Problem Relation Age of Onset Lung Cancer Mother Cataracts Mother Breast Cancer Maternal Aunt Cancer Maternal Grandfather Glaucoma Father Cataracts Father Past Surgical History: Procedure Laterality Date ABDOMINAL FAT GRAFT Right 03/05/2014 Surgeon: Quinn Olivera MD; [facility] HYSTERECTOMY LUMBAR DRAIN PLACEMENT N/A 03/05/2014 Surgeon: Quinn Olivera MD; [facility] TRANSPHENOIDAL TUMOR RESECTION N/A 03/05/2014 Surgeon: Quinn Olivera MD; [facility] Social History Socioeconomic History Marital status: Single Spouse name: Not on file Number of children: Not on file Years of education: Not on file Highest education level: Not on file Occupational History Not on file Social Needs Financial resource strain: Not on file Food insecurity: Worry: Not on file Inability: Not on file Transportation needs: Medical: Not on file Non-medical: Not on file Tobacco Use Smoking status: Never Smoker Substance and Sexual Activity Alcohol use: No Alcohol/week: 0.0 oz Drug use: No Comment: has used CBD oil for pain Sexual activity: Not on file Lifestyle Physical activity: Days per week: Not on file Minutes per session: Not on file Stress: Not on file Relationships Social connections: Talks on phone: Not on file Gets together: Not on file Attends amish service: Not on file Active member of club or organization: Not on file Attends meetings of clubs or organizations: Not on file Relationship status: Not on file Intimate partner violence: Fear of current or ex partner: Not on file Emotionally abused: Not on file Physically abused: Not on file Forced sexual activity: Not on file Other Topics Concern Not on file Social History Narrative Not on file ROS questions to the patient. Cardiac: chest pain, shortness of breath, easy fatigue, arrhythmia, swelling of legs. Respiratory: cough, with sputum production, wheezing, insomnia. G.I.: nausea, vomiting, diarrhea, poor appetite, blood in stool, difficult swallow. Urinary: pain with urination, blood with urination, incontinence, difficulty urinating. Skin: discoloration, itching, change in hair or nails, skin breakdown, rash. Hematology/immunology: easy bruising, malignancy. Head, nose, throat: ringing of ears, loss of hearing, nosebleeds, clear discharge from nose, sores in mouth, hoarseness, facial pain. Neurology: dizziness, tremor, change in speech, seizures, fainting spells, loss of memory, weakness arm or leg, numbness arm or leg, word finding defect. Endocrine: hot intolerance, excessive urination, increased thirst, increased sweating. Psychiatric: disorientation, depression, anxiety, mood disorder, loss of contact with reality, anger. Eyes: change in vision, eye pain, double vision, blurred vision, eyelid droop. Skeletal: pain in joints, muscle pain, back pain, neck pain, swelling of joints , swelling of the hands. Pertinent patient responses: Bold if positive, otherwise negative Vital signs: BP 125/84 | Pulse 85 | Temp 36.4 C (97.6 F) (Oral) | Resp 18 | Ht 5' 4" (1.626 m) | Wt 272 lb 1 oz (123.4 kg) | BMI 46.70 kg/m Mental Status: well-kept and appears stated age, alert and oriented times three , cooperative during the exam, attention and concentration normal, healthcare receptionist and expression intact, fund of information normal, recent and remote memory intact, affect/mood normal and relaxed. Cranial nerves (vision, eye movement): EOM intact, equal reactive pupils, accommodation reflex present, full visual merrill. Opthalmoloscopic: absent papilledema, optic disc margins sharp, no retinal hemorrhages, exudates not apparent. Cranial nerves (face): normal mastication, facial sensation normal, facial motor normal, corneal reflex not done. Cranial nerves (taste, smell): taste intact by history, smell intact by history. Cranial nerve (hearing): normal conversational hearing, finger rub WNL. Cranial nerve (accessory): normal r/l sternomastoid bulk/tone/power. Shoulder shrug right and left normal. Cranial nerve (tongue): tongue bulk normal, tongue midline, palate centered. Peripheral motor: Arms: Strength, tone, power normal bilaterally. Legs: Strength, tone, power normal bilaterally. Reflexes: Arms: Triceps, biceps, brachioradialis 2+ and symmetrical Legs: Patelllar, ankle jerks 2 + and symmetrical. Toes downgoing bilaterally. Peripheral sensation: Arms: light touch intact, primary sharp touch normal, vibration symmetrical, proprioception normalbilaterally. Legs: light touch intact, sharp touch reduced R lower extremity, vibration symmetrical, proprioception normal bilaterally. Coordination: Bilateral [id number] and finger tapping normal. Bilateral RAH motions symmetrical. Gait: gait normal, arm swing intact, romberg negative. Tandem walk normal, can balance on one foot or the other. HEENT: A/N, no oropharyngeal lesion present, JVD absent, thyromegaly absent, no lymphadenopathy present. Lungs: lungs clear, no wheezing, no rhonchi. Heart: CV RRR, no murmurs, carotid bruits absent. Peripheral vascular: no peripheral cyanosis, clubbing absent, no peripheral edema present, intact peripheral pulses, extremities warm to touch. Musculoskeletal: normal cervical ROM, normal lumbar range of motion, normal cervical torsional movements. No pain with spinal palpation. ASSESSMENT AND RECOMMENDATIONS: ICD-10-CM ICD-9-CM 1. Complicated headache syndromes G44.59 339.44 2. Pituitary adenoma D35.2 227.3 Impression: Will treat headaches as migraine type for now and see if she improves with migraine prophylaxis. Will also evaluate nasal discharge for possible CSF leak, as this could be a cause of her pressure like headaches that improve w lying down. Plan: -start valproate 125mg BID for headache prophylaxis -order glucose, protein, and cell count for nasal discharge to evaluate for possible CSF leak -consider possible spinal tap in future, especially if valproate does not improve headaches -referral placed for Endocrinology to manage endocrine deficits Creation of the note was aided by utilizing a cut/paste operation of text from a Microsoft Word template created with [employer]. The text was dictated into the template via Dragon Naturally Speaking. documented in this encounter Plan of Treatment Date Type Specialty Care Team Description 01/16/2019 Office Visit Endocrinology Diabetes & Khari Puckett [address] Encarn[place] [address] [place] [address] [phone] 11/06/2019 Office Visit Radiation Therapy Norberto Luis MD [id number] [place] [address] Health Maintenance Due Date Last Done Comments VARICELLA VACCINES (1 of 2 - 13+ 2000 2-dose series) DTaP,Tdap,and Td Vaccines (1 - 2006 Tdap) PAP SMEAR 2008 INFLUENZA VACCINE (#1) 2018 PNEUMOCOCCAL 0-64 YEARS COMBINED Aged Out No longer eligible based on SERIES patient's age to complete this topic documented as of this encounter Implants Implanted Type Area Baggage Inspector Device Shelf Model / Identifier Expiration Serial / Date Lot Duraseal, Covidien Improved Dural Sealant System 5ml #[id number] - [id number] Duraseal N/A: Head Tyco/Covidien 04/28/2015 [id number] / Implanted: Qty: 1 on 03/05/2014 by Quinn Olivera at [facility] / [id number] documented as of this encounter Results Not on filedocumented in this encounter Visit Diagnoses Diagnosis Complicated headache syndromes - Primary Other complicated headache syndrome Pituitary adenoma Benign neoplasm of pituitary gland and craniopharyngeal duct (pouch) documented in this encounter Insurance Payer Benefit Plan Subscriber ID Effective Dates Phone Address Type / Group [facility] [id number] 2017-Sofi [phone] [address] PPO/POS [place] - OUT OF t 7 [id number] [place] [address] Guarantor Name Account Type Relation to Date of Phone Billing Patient Address Janine Blood Personal/Family Self 1985 [address] (Home) [place] [address] documented as of this encounter
--- OUTSIDE RECORDS SUMMARY | 2019-05-25 11:22 | XMS REPORT | Summary of Care ---
:1985 Author Organization [facility] - Health Address [address] [place] [address] Care Team Providers Name Role Phone Lakesha Senthil Levi Primary Care Provider Encounter Details Date Type Department Care Team Description 12/30/2018 Orders Only [facility] Doctor Unassigned, No [address] [facility] [place] [address] [address] [place] [address] Allergies Active Allergy Reactions Severity Noted Date Comments Cephalexin Hives, Nausea and/or 01/25/2015 Vomiting Sulfa (Sulfonamide Hives 01/19/2013 Antibiotics) documented as of this encounter (statuses as of 12/30/2018) Medications Medication Sig Dispensed Refills Start Date [...] as of this encounter (statuses as of 12/30/2018) Active Problems Problem Noted Date Brain mass 03/03/2014 Obesity, morbid, BMI 50 or higher 02/22/2014 Pituitary adenoma 02/11/2014 Persistent headaches 02/09/2014 Pituitary mass 02/09/2014 documented as of this encounter (statuses as of 12/30/2018) Social History Tobacco Use Types Packs/Day Years [...] Treatment Date Type Specialty Care Team Description 12/30/2018 Office Visit Neurology Ricco Chaney MD [address] [place] [address]. [place] [phone] 11/06/2019 Office Visit Radiation Therapy Norberto Luis MD [address] [place] [address] [id number] [place], [place] [phone] Health Maintenance Due Date Last Done Comments VARICELLA VACCINES (1 of 2 - 13+ 2000 2-dose series) DTaP,Tdap,and Td Vaccines (1 - 2006 Tdap) PAP SMEAR 2008 INFLUENZA VACCINE (#1) 2018 PNEUMOCOCCAL 0-64 YEARS COMBINED Aged Out No longer eligible based on SERIES patient's age to complete this topic documented as of this encounter Implants Implanted Type Area Senior Electrical Design Engineer Device Shelf Model / Identifier Expiration Serial / Date Lot Duraseal, Covidien Improved Dural Sealant System 5ml #[id number] - [id number] Duraseal N/A: Head Tyco/Covidien 04/28/2015 [id number] / Implanted: Qty: 1 on 03/05/2014 by Quinn Olivera at [facility] / [id number] documented as of this encounter Procedures Procedure Name Priority Date/Time Associated Diagnosis Comments ASSIGNMENT OF BENEFITS Routine 12/30/2018 10:26 AM CDT documented in this encounter Results Not on filedocumented in this encounter Insurance Payer Benefit Plan Subscriber ID Effective Dates Phone Address Type / Group BC[facility] OF [facility] [id number] 2017-Sofi [phone] [address] PPO/POS [place] - OUT OF t 7 [id number] [place] [address] documented as of this encounter
--- OUTSIDE RECORDS SUMMARY | 2019-05-25 11:22 | XMS REPORT | Summary of Care ---
:1985 Author Organization [facility] Address [address] [place] [address] Care Team Providers Name Role Phone Lakesha Senthil Levi Primary Care Provider Reason for Visit Reason Comments Appointment Encounter Details Date Type Department Care Team Description 12/30/2018 Telephone [facility] Endocrinology- Khari Puckett Appointment [address] Professional Office Shashank [address] [place] [phone] [place] [address] Dr. Arevalo [phone] [facility] [place] [address] Allergies Active Allergy Reactions Severity Noted Date Comments Cephalexin Hives, Nausea and/or 01/25/2015 Vomiting Sulfa (Sulfonamide Hives 01/19/2013 Antibiotics) documented as of this encounter (statuses as of 12/31/2018) Medications Medication Sig Dispensed Refills Start Date [...] as of this encounter (statuses as of 12/31/2018) Active Problems Problem Noted Date Brain mass 03/03/2014 Obesity, morbid, BMI 50 or higher 02/22/2014 Pituitary adenoma 02/11/2014 Persistent headaches 02/09/2014 Pituitary mass 02/09/2014 documented as of this encounter (statuses as of 12/31/2018) Social History Tobacco Use Types Packs/Day Years [...] Office Visit Endocrinology Diabetes & Khari Puckett Metabolism [address] [place] [address] [place] [address] [phone] 11/06/2019 Office Visit Radiation Therapy Norberto Luis MD [id number] [place], [place] [phone] Health Maintenance Due Date Last Done Comments VARICELLA VACCINES (1 of 2 - 13+ 2000 2-dose series) DTaP,Tdap,and Td Vaccines (1 - 2006 Tdap) PAP SMEAR 2008 INFLUENZA VACCINE (#1) 2018 PNEUMOCOCCAL 0-64 YEARS COMBINED Aged Out No longer eligible based on SERIES patient's age to complete this topic documented as of this encounter Implants Implanted Type Area Instructor Traffic Safety Device Shelf Model / Identifier Expiration Serial / Date Lot Duraseal, Covidien Improved Dural Sealant System 5ml #[id number] - [id number] Duraseal N/A: Head Tyco/Covidien 04/28/2015 [id number] / Implanted: Qty: 1 on 03/05/2014 by Quinn Olivera at [facility] / [id number] documented as of this encounter Results Not on filedocumented in this encounter Insurance Payer Benefit Plan Subscriber ID Effective Dates Phone Address Type / Group [facility] [id number] 2017-Sofi [phone] [address] PPO/POS [place] - OUT OF t 7 [id number] [place] [address] documented as of this encounter
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
--- OUTSIDE RECORDS SUMMARY | 2019-05-25 11:23 | XMS REPORT | Summary of Care ---
:1985 Author Organization [facility] Address [address] [place] [address] Care Team Providers Name Role Phone Senthil Crowder Gurmeet Primary Care Provider Reason for Referral (Routine) Status Reason Specialty Diagnoses / Referred By Referred To Procedures Contact Contact New Request Endocrinology Diagnoses Pituitary adenoma Ricco Chaney, Diabetes & Procedures CONSULT/REFERRAL ENDOCRINOLOGY Other (see comments); Preferred Location: [facility] MD Hector [address] [place] [phone] [place], [place] Phone: [phone] Phone: Reason for Visit Reason Comments Follow-up (Routine) Status Reason Specialty Diagnoses / Referred By Referred To Procedures Contact Contact New Request Neurology Diagnoses Pituitary adenoma Norberto Luis Procedures CONSULT/REFERRAL NEUROLOGY MD Chang [address] [place] [address] [id number] [place] [address] Encounter Details Date Type Department Care Team Description 12/30/2018 Office Visit [facility] Ricco Chaney Complicated headache syndromes (Primary Dx); Neurology-Jaxon Young MD Pituitary adenoma [address] [place] [address] Drive, [address] [place] [phone] Allergies Active Allergy Reactions Severity Noted Date [...] evaluation and management service. 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 She did say [...] file Gets together: Not on file Attends mormonism service: Not on file Active member of [...] during the exam, attention and concentration normal, hotel receptionist and expression intact, fund of information [...] vibration symmetrical, proprioception normal bilaterally. Coordination: Bilateral [id number] and finger tapping normal. Bilateral RAH motions [...] from a Microsoft Word template created with [employer]. The text was dictated into the template via Dragon Naturally Speaking. documented in this encounter Plan of Treatment Date Type Specialty Care Team Description 01/16/2019 Office Visit Endocrinology Diabetes & Khari Puckett [address] Encarnacion [address] [place] [address] [phone] 11/06/2019 Office Visit Radiation Therapy Norberto Luis MD [id number] [place] [address] Health Maintenance Due Date Last Done Comments VARICELLA VACCINES (1 of 2 - 13+ 2000 2-dose series) DTaP,Tdap,and Td Vaccines (1 - 2006 Tdap) PAP SMEAR 2008 INFLUENZA VACCINE (#1) 2018 PNEUMOCOCCAL 0-64 YEARS COMBINED Aged Out No longer eligible based on SERIES patient's age to complete this topic documented as of this encounter Implants Implanted Type Area Projection Welding Machine Operator Device Shelf Model / Identifier Expiration Serial / Date Lot Duraseal, Covidien Improved Dural Sealant System 5ml #[id number] - [id number] Duraseal N/A: Head [employer]co/Covidien 04/28/2015 [id number] / Implanted: Qty: 1 on 03/05/2014 by Quinn Olivera at [facility] / [id number] documented as of this encounter Results Not on filedocumented in this encounter Visit Diagnoses Diagnosis Complicated headache syndromes - Primary Other complicated headache syndrome Pituitary adenoma Benign neoplasm of pituitary gland and craniopharyngeal duct (pouch) documented in this encounter Insurance Payer Benefit Plan Subscriber ID Effective Dates Phone Address Type / Group [facility] [id number] 2017-Sofi [phone] [address] PPO/POS [place] - OUT OF t 7 [id number] [place] [address] Guarantor Name Account Type Relation to Date of Phone Billing Patient Address Janine Blood Personal/Family Self 1985 [address] (Home) [place] [address] documented as of this encounter
[2019-05-25 12:31] LABS: Absolute Lymphocytes (CBC) 1.4 K/uL (0.7-4.9); Basophils % 0.3 % (0-1.3); Hematocrit 39.1 % (36.0-45.0); Lymphocytes % 40.3 % (15.3-44.8); MPV 7.7 fL (7.6-11.3); RBC Red Blood Cell Count 4.47 M/uL (3.86-4.86)
[2019-05-25 12:39] LABS: Protime INR 1.05
[2019-05-25] MEDS ORDERED: MORPHINE 4 MG/ML SYR ONE (12:43)
[2019-05-25] MEDS ORDERED: NA CHLORIDE 0.9% 1,000 ML ONE (12:43)
[2019-05-25] MEDS ORDERED: ONDANSETRON 4 MG/2 ML VIAL ONE (12:43)
[2019-05-25] MEDS ORDERED: FAMOTIDINE 20 MG/2 ML VIAL IV ONE (12:43)
--- NOTE | 2019-05-25 12:57 | RAD REPORT ---
EXAM DESCRIPTION: US - Abdomen Exam Limited - 05/25/2019 12:50 pm CLINICAL HISTORY: Abdominal pain. COMPARISON: None. FINDINGS: The gallbladder wall is not thickened. A gallstone is not seen. The biliary tree is normal caliber. Fatty liver IMPRESSION: Unremarkable gallbladder ultrasound.
[2019-05-25 12:58] LABS: ALT/SGPT 55 U/L (12-78); AST/SGOT 25 U/L (15-37); Albumin 3.4 g/dL (3.4-5.0); Alkaline Phosphatase 49 U/L (45-117); BUN Blood Urea Nitrogen 8 mg/dL (7-18); Bicarbonate 28 mmol/L (21-32); Bilirubin Direct 0.1 mg/dL (0-0.2); Bilirubin Total 0.3 mg/dL (0.2-1.0); Glucose Level 89 mg/dL (74-106); NT PRO-BNP 27 pg/mL (<125); Protein, Total 6.3 g/dL (6.4-8.2); Sodium Level 143 mmol/L (136-145); Troponin (Emerg Dept Use Only) < 0.02 ng/mL (0.0-0.045)
--- NOTE | 2019-05-25 14:25 | RAD REPORT ---
EXAM DESCRIPTION: CT - Angio Aorta For Dissection - 05/25/2019 1:50 pm CLINICAL HISTORY: Chest and abdominal pain COMPARISON: 2018 TECHNIQUE: Computed tomography angiography of the chest, abdomen pelvis were obtained. 100 cc Isovue 370 was administered intravenously. Coronal and sagittal reconstruction were performed. MIP 3D reconstruction was performed All CT scans are performed using dose optimization technique as appropriate and may include automated exposure control or mA/KV adjustment according to patient size. FINDINGS: An aortic dissection is not seen. An aortic aneurysm is not displayed. The celiac, SMA and DELMA are patent. The common hepatic artery arises from the SMA. A lung consolidation is not present. A pericardial effusion is not seen. A pleural effusion is not n oted. A gastric band is in place. Mild to moderate right hydronephrosis is present. Right renal cortical thinning is present. Mild fatty liver. Right lateral ventral hernia repair 7 centimeter complex cystic right adnexal mass. The appendix is normal. There no evidence diverticulitis. No ascites is noted. IMPRESSION: Negative for an aortic dissection. 7 centimeter complex cystic right adnexal mass. Ultrasound recommended Mild to moderate right hydronephrosis. The right ureter appears to have an ectopic insertion into the bladder.
--- NOTE | 2019-05-25 14:54 | ER ---
Nurse's Notes [facility] Name: Janine Blood Age: 34 yrs Sex: Female : 1985 Arrival Date: 05/25/2019 Time: 11:17 Bed 13 Private MD: Diagnosis: Abdominal tenderness;Chest pain, unspecified;Obesity, unspecified;Hydronephrosis with ureteral stricture, not elsewhere classified;Unspecified ovarian cysts Presentation: 05/25 11:25 Presenting complaint: Patient states: it started yesterday, hurting in the middle of my tw2 chest and upper part of my stomach and i am nauseous and i feel weak. Transition of care: patient was not received from another setting of care. Onset of symptoms was May 25, 2019. Risk Assessment: Do you want to hurt yourself or someone else? Patient reports no desire to harm self or others. Initial Sepsis Screen: Does the patient meet any 2 criteria? No. Patient's initial sepsis screen is negative. Does the patient have a suspected source of infection? No. Patient's initial sepsis screen is negative. Care prior to arrival: None. 11:25 Method Of Arrival: Wheelchair tw2 11:25 Acuity: GOLDEN 3 tw2 Triage Assessment: 11:26 General: Appears obese, well groomed, Behavior is crying. Pain: Complains of pain in tw2 epigastric area. GI: Reports nausea. 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 - Coronavirus screen:: The patient has NOT traveled to [place], [place], or [place] in the past 14 days. - Social history:: Smoking status: . - Family history:: not pertinent. - Ebola Screening: : Patient denies travel to an Ebola-affected area in the 21 days before illness onset. Screenin:50 Abuse screen: Denies threats or abuse. Denies injuries from another. Nutritional ca1 screening: No deficits noted. Tuberculosis screening: No symptoms or risk factors identified. Fall Risk IV access (20 points). Assessment: 11:50 General: Appears in no apparent distress. uncomfortable, Behavior is cooperative, ca1 appropriate for age, crying. Pain: Complains of pain in epigastric area Pain does not radiate. Pain currently is 10 out of 10 on a pain scale. Quality of pain is described as squeezing, Pain began 1 day ago. Is continuous, Noted to be crying. Neuro: Level of Consciousness is awake, alert, obeys commands, Oriented to person, place, time, situation, Appropriate for age. Cardiovascular: Heart tones S1 S2 present Capillary refill < 3 seconds Patient's skin is warm and dry. Rhythm is sinus rhythm. Respiratory: Airway is patent Respiratory effort is even, unlabored, Respiratory pattern is regular, symmetrical, Breath sounds are clear bilaterally. GI: Abdomen is round obese, Bowel sounds present X 4 quads. Abd is soft X 4 quads Abdomen is tender to palpation in epigastric area Reports diarrhea, nausea. : No signs and/or symptoms were reported regarding the genitourinary system. EENT: No signs and/or symptoms were reported regarding the EENT system. Derm: Skin is intact, is healthy with good turgor, Skin is pink, warm \T\ dry. Musculoskeletal: Circulation, motion, and sensation intact. Capillary refill < 3 seconds, Range of motion: intact in all extremities. 13:05 Reassessment: Patient appears in no apparent distress at this time. Patient and/or ca1 family updated on plan of care and expected duration. Pain level reassessed. Patient is alert, oriented x 3, equal unlabored respirations, skin warm/dry/pink. 14:00 Reassessment: Patient appears in no apparent distress at this time. Patient is alert, ca1 oriented x 3, equal unlabored respirations, skin warm/dry/pink. 15:00 Reassessment: Patient appears in no apparent distress at this time. Patient is alert, ca1 oriented x 3, equal unlabored respirations, skin warm/dry/pink. Vital Signs: 11:27 BP 136 / 91; Pulse 75; Resp 18; Temp 97.3(TE); Pulse Ox 100% on R/A; Weight 126.55 kg tw2 (R); Height 5 ft. 4 in. (162.56 cm); Pain 10/10; 13:05 BP 114 / 67; Pulse 76; Resp 17 S; Pulse Ox 100% on R/A; ca1 14:00 BP 127 / 76; Pulse 70; Resp 18 S; Pulse Ox 99% on R/A; ca1 15:00 BP 111 / 65; Pulse 65; Resp 18 S; Pulse Ox 100% on R/A; ca1 11:27 Body Mass Index 47.89 (126.55 kg, 162.56 cm) tw2 ED Course: 11:17 Patient arrived in ED. rg4 11:26 Triage completed. tw2 11:26 Arm band placed on. tw2 11:32 Jovanny Kelley MD is Attending Physician. raul 11:37 Vangie Aleman, TRE is Primary Nurse. ca1 11:50 Patient has correct armband on for positive identification. Placed in gown. Bed in low ca1 position. Call light in reach. Side rails up X2. phototypesetting equipment monitor on. Pulse ox on. NIBP on. Warm blanket given. 11:50 No provider procedures requiring assistance completed. ca1 11:54 EKG done, by ED staff, reviewed by Jovanny Kelley MD. ca1 12:26 Initial lab(s) drawn, by md, sent to lab. Inserted saline lock: 20 gauge in right ca1 antecubital area, using aseptic technique. Blood collected. 12:51 US Abdomen Limited In Process Unspecified. EDMS 13:00 XRAY Chest (1 view) In Process Unspecified. EDMS 13:51 CT Aorta for Dissection: ro diss, pe In Process Unspecified. EDMS 14:53 Dennys Vasquez MD is Referral Physician. raul 14:53 Cirilo Izaguirre MD is Referral Physician. raul 14:55 Amrita Blum MD is Referral Physician. raul 15:34 IV discontinued, intact, bleeding controlled, No redness/swelling at site. Pressure ca1 dressing applied. Administered Medications: 13:05 Drug: NS 0.9% 1000 ml Route: IV; Rate: 1 bolus; Site: right antecubital; ca1 15:03 Follow up: Response: No adverse reaction; IV Status: Completed infusion ca1 13:07 Drug: Pepcid 20 mg Route: IVP; Site: right antecubital; ca1 15:04 Follow up: Response: No adverse reaction; Pain is decreased ca1 13:09 Drug: Zofran 4 mg Route: IVP; Site: right antecubital; ca1 14:00 Follow up: Response: No adverse reaction; Nausea is decreased ca1 13:11 Drug: morphine 4 mg {Note: RASS - 0.} Route: IVP; Site: right antecubital; ca1 14:00 Follow up: Response: No adverse reaction; Pain is decreased; RASS: Alert and Calm (0) ca1 15:22 Drug: morphine 2 mg {Note: RASS - 0.} Route: IVP; Site: right antecubital; ca1 15:34 Follow up: Response: Medication administered at discharge. ca1 Outcome: 14:53 Discharge ordered by . raul 15:34 Discharged to home ambulatory, with family. ca1 15:34 Condition: stable 15:34 Discharge instructions given to patient, Instructed on discharge instructions, follow up and referral plans. medication usage, Demonstrated understanding of instructions, follow-up care, medications, Prescriptions given X 3. 15:36 Patient left the ED. ca1 Signatures: Dispatcher [employer] EDMS Jovanny Kelley MD MD cha Wise, Tara, RN RN tw2 Ursula Ash4 Vangie Aleman RN RN ca1
--- NOTE | 2019-05-25 14:54 | EDPHYS ---
Physician Documentation [facility] Name: Janine Blood Age: 34 yrs Sex: Female : 1985 Arrival Date: 05/25/2019 Time: 11:17 Bed 13 Private MD: ED Physician Jovanny Kelley HPI: 05/25 12:31 This 34 yrs old Female presents to ER via Wheelchair with complaints of raul Abdominal Pain, Chest Pain, Weakness. 12:31 The patient or guardian reports chest pain that is located primarily in the substernal raul area, epigastric area. The pain does not radiate. Associated signs and symptoms: The patient has no apparent associated signs or symptoms. The chest pain is described as a pressure. Severity of pain: At its worst the pain was mild moderate in the emergency department the pain is unchanged. The patient has not experienced similar symptoms in the past. 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 - Coronavirus screen:: The patient has NOT traveled to [place], [place], or [place] in the past 14 days. - Social history:: Smoking status: . - Family history:: not pertinent. - Ebola Screening: : Patient denies travel to an Ebola-affected area in the 21 days before illness onset. ROS: 12:31 Constitutional: Negative for fever, chills, and weight loss, Eyes: Negative for injury, raul pain, redness, and discharge, ENT: Negative for injury, pain, and discharge, Neck: Negative for injury, pain, and swelling, Respiratory: Negative for shortness of breath, cough, wheezing, and pleuritic chest pain, Back: Negative for injury and pain, : Negative for injury, bleeding, discharge, and swelling, MS/Extremity: Negative for injury and deformity, Skin: Negative for injury, rash, and discoloration, Neuro: Negative for headache, weakness, numbness, tingling, and seizure, Psych: Negative for depression, anxiety, suicide ideation, homicidal ideation, and hallucinations, Allergy/Immunology: Negative for hives, rash, and allergies, Endocrine: Negative for neck swelling, polydipsia, polyuria, polyphagia, and marked weight changes, Hematologic/Lymphatic: Negative for swollen nodes, abnormal bleeding, and unusual bruising. 12:31 Cardiovascular: Positive for chest pain. 12:31 Abdomen/GI: Positive for abdominal pain, of the epigastric area, right upper quadrant and left upper quadrant. Exam: 12:31 Constitutional: This is a well developed, well nourished patient who is awake, alert, raul and in no acute distress. Head/Face: Normocephalic, atraumatic. Eyes: Pupils equal round and reactive to light, extra-ocular motions intact. Lids and lashes normal. Conjunctiva and sclera are non-icteric and not injected. Cornea within normal limits. Periorbital areas with no swelling, redness, or edema. ENT: Nares patent. No nasal discharge, no septal abnormalities noted. Tympanic membranes are normal and external auditory canals are clear. Oropharynx with no redness, swelling, or masses, exudates, or evidence of obstruction, uvula midline. Mucous membranes moist. Neck: Trachea midline, no thyromegaly or masses palpated, and no cervical lymphadenopathy. Supple, full range of motion without nuchal rigidity, or vertebral point tenderness. No Meningismus. Chest/axilla: Normal chest wall appearance and motion. Nontender with no deformity. No lesions are appreciated. Cardiovascular: Regular rate and rhythm with a normal S1 and S2. No gallops, murmurs, or rubs. Normal PMI, no JVD. No pulse deficits. Respiratory: Lungs have equal breath sounds bilaterally, clear to auscultation and percussion. No rales, rhonchi or wheezes noted. No increased work of breathing, no retractions or nasal flaring. Back: No spinal tenderness. No costovertebral tenderness. Full range of motion. Female : Normal external genitalia. Skin: Warm, dry with normal turgor. Normal color with no rashes, no lesions, and no evidence of cellulitis. MS/ Extremity: Pulses equal, no cyanosis. Neurovascular intact. Full, normal range of motion. Neuro: Awake and alert, GCS 15, oriented to person, place, time, and situation. Cranial nerves II-XII grossly intact. Motor strength 5/5 in all extremities. Sensory grossly intact. Cerebellar exam normal. Normal gait. Psych: Awake, alert, with orientation to person, place and time. Behavior, mood, and affect are within normal limits. 12:31 Abdomen/GI: Inspection: abdomen appears normal, Bowel sounds: normal, Palpation: mild abdominal tenderness, in the epigastric area. 13:48 Musculoskeletal/extremity: DVT Exam: No signs of deep vein thrombosis. no pain, no raul swelling, no tenderness, negative Homans' sign noted on exam, no appreciated bluish discoloration, no erythema, no increased warmth. Vital Signs: 11:27 BP 136 / 91; Pulse 75; Resp 18; Temp 97.3(TE); Pulse Ox 100% on R/A; Weight 126.55 kg tw2 (R); Height 5 ft. 4 in. (162.56 cm); Pain 10/10; 13:05 BP 114 / 67; Pulse 76; Resp 17 S; Pulse Ox 100% on R/A; ca1 14:00 BP 127 / 76; Pulse 70; Resp 18 S; Pulse Ox 99% on R/A; ca1 15:00 BP 111 / 65; Pulse 65; Resp 18 S; Pulse Ox 100% on R/A; ca1 11:27 Body Mass Index 47.89 (126.55 kg, 162.56 cm) tw2 MDM: 11:32 Patient medically screened. [facility] 12:34 Data reviewed: vital signs, nurses notes, lab test result(s), EKG, radiologic studies, [facility] CT scan, plain films, ultrasound. 05/25 12:09 Order name: Basic Metabolic Panel; Complete Time: 13:04 ca1 05/25 12:09 Order name: CBC with Diff; Complete Time: 12:43 ca1 05/25 12:09 Order name: LFT's; Complete Time: 13:04 ca1 05/25 12:09 Order name: Magnesium; Complete Time: 13:04 ca1 05/25 12:09 Order name: NT PRO-BNP; Complete Time: 13:04 ca1 05/25 12:09 Order name: PT-INR; Complete Time: 12:43 ca1 05/25 12:09 Order name: Troponin (emerg Dept Use Only); Complete Time: 13: ca1 05/25 12:09 Order name: XRAY Chest (1 view) [facility] 05/25 12:31 Order name: Lipase; Complete Time: 13:04 [facility] 05/25 12:31 Order name: D-Dimer; Complete Time: 13:04 [facility] 05/25 12:34 Order name: US Abdomen Limited; Complete Time: 13:04 [facility] 05/25 13:39 Order name: CT Aorta for Dissection: ro diss, pe; Complete Time: 14:51 [facility] 05/25 11:53 Order name: EKG; Complete Time: 11:54 [facility] 05/25 11:53 Order name: EKG - Nurse/Tech; Complete Time: 11:54 [facility] 05/25 12:09 Order name: Cardiac monitoring; Complete Time: 12:17 [facility] 05/25 12:09 Order name: IV Saline Lock; Complete Time: 12: [facility] 05/25 12:09 Order name: Labs collected and sent; Complete Time: 12:26 [facility] 05/25 12:09 Order name: O2 Per Protocol; Complete Time: 12:18 [facility] 05/25 12:09 Order name: O2 Sat Monitoring; Complete Time: 12:18 ca1 Administered Medications: 13:05 Drug: NS 0.9% 1000 ml Route: IV; Rate: 1 bolus; Site: right antecubital; ca1 15:03 Follow up: Response: No adverse reaction; IV Status: Completed infusion ca1 13:07 Drug: Pepcid 20 mg Route: IVP; Site: right antecubital; ca1 15:04 Follow up: Response: No adverse reaction; Pain is decreased ca1 13:09 Drug: Zofran 4 mg Route: IVP; Site: right antecubital; ca1 14:00 Follow up: Response: No adverse reaction; Nausea is decreased ca1 13:11 Drug: morphine 4 mg {Note: RASS - 0.} Route: IVP; Site: right antecubital; ca1 14:00 Follow up: Response: No adverse reaction; Pain is decreased; RASS: Alert and Calm (0) ca1 15:22 Drug: morphine 2 mg {Note: RASS - 0.} Route: IVP; Site: right antecubital; ca1 15:34 Follow up: Response: Medication administered at discharge. ca1 Disposition: 05/25/19 14:53 Discharged to Home. Impression: Abdominal tenderness, Chest pain, unspecified, Obesity, unspecified, Hydronephrosis with ureteral stricture, not elsewhere classified, Unspecified ovarian cysts. - Condition is Stable. - Discharge Instructions: Abdominal Pain, Adult, Nonspecific Chest Pain, Ovarian Cyst, Abdominal Pain, Adult, [id number], Nonspecific Chest Pain, Ptok-as-[id number], Hydronephrosis, Ovarian Cyst, [id number]-dp-[id number]. - Prescriptions for Bentyl 20 mg Oral Tablet - take 1 tablet by ORAL route every 6 hours As needed; 20 tablet. Zofran 4 mg Oral Tablet - take 1 tablet by ORAL route every 12 hours As needed; 20 tablet. Pepcid 20 mg Oral Tablet - take 1 tablet by ORAL route once daily for 10 days; 10 tablet. - Work release form, Medication Reconciliation Form, Thank You Letter, Antibiotic Education, Prescription Opioid Use form. - Follow up: Private Physician; When: 2 - 3 days; Reason: Recheck today's complaints, Continuance of care, Re-evaluation by your physician. Follow up: Dennys Vasquez MD; When: 2 - 3 days; Reason: Recheck today's complaints, Re-evaluation by your physician. Follow up: Cirilo Izaguirre MD; When: 2 - 3 days; Reason: Recheck today's complaints, Re-evaluation by your physician. Follow up: Amrita Blum MD; When: 2 - 3 days; Reason: Recheck today's complaints, Re-evaluation by your physician. - Problem is new. - Symptoms have improved. Signatures: Dispatcher [employer] EDVT Jovanny Kelley MD MD cha Williams, Irene, RN RN iw Daisy Cervantes RN RN tw2 Vangie Aleman RN RN ca1 Corrections: (The following items were deleted from the chart) 13:42 13:05 Chest For PE Angio+CT.RAD.BRZ ordered. [facility] EDVT 14:55 14:53 05/25/2019 14:53 Discharged to Home. Impression: Abdominal tenderness; Chest raul pain, unspecified; Obesity, unspecified; Hydronephrosis with ureteral stricture, not elsewhere classified; Unspecified ovarian cysts. Condition is Stable. Discharge Instructions: Abdominal Pain, Adult, Nonspecific Chest Pain, Abdominal Pain, Adult, [id number]-we-[id number], Nonspecific Chest Pain, [id number]-cp-[id number]. Prescriptions for Bentyl 20 mg Oral Tablet - take 1 tablet by ORAL route every 6 hours As needed; 20 tablet, Zofran 4 mg Oral Tablet - take 1 tablet by ORAL route every 12 hours As needed; 20 tablet, Pepcid 20 mg Oral Tablet - take 1 tablet by ORAL route once daily for 10 days; 10 tablet. and Forms are Medication Reconciliation Form, Thank You Letter, Antibiotic Education, Prescription Opioid Use. Follow up: Private Physician; When: 2 - 3 days; Reason: Recheck today's complaints, Continuance of care, Re-evaluation by your physician. Follow up: Dennys Vasquez; When: 2 - 3 days; Reason: Recheck today's complaints, Re-evaluation by your physician. Follow up: Cirilo Izaguirre; When: 2 - 3 days; Reason: Recheck today's complaints, Re-evaluation by your physician. Problem is new. Symptoms have improved. raul 15:36 14:55 05/25/2019 14:53 Discharged to Home. Impression: Abdominal tenderness; Chest ca1 pain, unspecified; Obesity, unspecified; Hydronephrosis with ureteral stricture, not elsewhere classified; Unspecified ovarian cysts. Condition is Stable. Discharge Instructions: Abdominal Pain, Adult, Nonspecific Chest Pain, Abdominal Pain, Adult, Bfky-ds-[id number], Nonspecific Chest Pain, Hiyi-jq-Zqff, Ovarian Cyst, Hydronephrosis, Ovarian Cyst, Tvoa-uf-Lvlk. Prescriptions for Bentyl 20 mg Oral Tablet - take 1 tablet by ORAL route every 6 hours As needed; 20 tablet, Zofran 4 mg Oral Tablet - take 1 tablet by ORAL route every 12 hours As needed; 20 tablet, Pepcid 20 mg Oral Tablet - take 1 tablet by ORAL route once daily for 10 days; 10 tablet. and Forms are Medication Reconciliation Form, Thank You Letter, Antibiotic Education, Prescription Opioid Use. Follow up: Private Physician; When: 2 - 3 days; Reason: Recheck today's complaints, Continuance of care, Re-evaluation by your physician. Follow up: Dennys Vasquez; When: 2 - 3 days; Reason: Recheck today's complaints, Re-evaluation by your physician. Follow up: Cirilo Izaguirre; When: 2 - 3 days; Reason: Recheck today's complaints, Re-evaluation by your physician. Follow up: Amrita Blum; When: 2 - 3 days; Reason: Recheck today's complaints, Re-evaluation by your physician. Problem is new. Symptoms have improved. raul
--- NOTE | 2019-05-25 15:20 | EKG ---
Test Date: 2019-05-25 Test Time: 11:48:14 [employer]: [employer] MEASUREMENT RESULTS: Intervals: Rate: 73 WV: 160 QRSD: 92 QT: 404 QTc: 445 Sutter: P: 42 WV: 160 QRS: 52 T: 21 INTERPRETIVE STATEMENTS: Normal sinus rhythm Normal ECG No previous ECG available for comparison Electronically Signed On 05-25-19 15:18:59 APPLICATION SUPPORT CONSULTANT by Liban Walker
[2019-05-25] MEDS ORDERED: MORPHINE 2 MG/ML SYR ONE (15:27)
[2019-05-25 16:16] VITALS: TEMP 97.3
[2019-05-25 16:20] VITALS: BP 111/65; O2SAT 100
== END 2019-05-25 15:36 | disposition home or self-care (01) ==
LOC: ER 11:15
DX: N13.1 Hydronephrosis with ureteral stricture, not elsewhere classified (principal); N83.209 Unspecified ovarian cyst, unspecified side; Z88.1 Allergy status to other antibiotic agents; Z88.2 Allergy status to sulfonamides; Z88.8 Allergy status to other drugs, medicaments and biological substances
CPT/HCPCS: 96361; 93005; 85025; 80048; 36415; 83735; 85610; 85379; 80076; 84484; 83690; 83880; 71275; 74175; 71045; 76705; 96375; 96374; 99285; Q9967; J2270; J7030; J2405

== ENCOUNTER 2024-08-17 06:18 | Emergency (ER) | payer OTHER ==
[2024-08-17 06:47] LABS: Absolute Eosinophils 0.1 K/uL (0-0.5); Absolute Lymphocytes (CBC) 1.1 K/uL (0.7-4.9); Absolute Monocytes 0.1 K/uL (0.1-1.3); Absolute Neutrophil 1.4 K/uL (1.8-8.0); Basophils % 0.5 % (0-1.3); Hematocrit 38.8 % (36.0-45.0); Hemoglobin 13.2 g/dL (12.0-15.0); Lymphocytes % 40.4 % (15.3-44.8); MCH 30.7 pg (27.0-35.0); MCV 90.3 fL (80-100); MPV 7.6 fL (7.6-11.3); Monocytes % 5.2 % (3.3-12.3); Neutrophils % 51.9 % (41.7-73.7); Nucleated Red Blood Cells % 0.1 % (0-0); Platelets 207 thou/uL (152-406)
[2024-08-17 06:49] LABS: Specific Gravity 1.012 (1.005-1.030)
[2024-08-17] MEDS ORDERED: droPERidol 5 MG/2 ML VIAL ONE (06:51)
[2024-08-17] MEDS ORDERED: ONDANSETRON 4 MG/2 ML VIAL ONE ×2 (06:51→07:01)
[2024-08-17] MEDS ORDERED: KETOROLAC 30 MG/ML INJ ONE (06:52)
[2024-08-17] MEDS ORDERED: MORPHINE 4 MG/ML SYR ONE (06:52)
[2024-08-17] MEDS ORDERED: DICYCLOMINE HCL 20 MG/2 ML AMP IM ONE (06:52)
[2024-08-17] MEDS ORDERED: NA CHLORIDE 0.9% 1,000 ML ONE (06:52)
[2024-08-17 06:55] LABS: Specific Gravity 1.012 (1.005-1.030); Sqamous Epithelial <5 /HPF (None Seen); Urine Bacteria <20 /HPF (<20); Urine Bilirubin NEGATIVE (Negative); Urine Blood Negative (Negative); Urine Clarity Extremely Turbid (Clear); Urine Color Light-Yellow (Yellow); Urine Culture Reflex Order REFLEXED; Urine Glucose NEGATIVE (Negative); Urine Ketones NEGATIVE (Negative); Urine Microscopic Reflex YN ORDER UMIC; Urine Mucus Slight /HPF (None Seen); Urine Nitrite NEGATIVE (Negative); Urine Protein NEGATIVE (Negative); Urine RBC <5 /HPF (None Seen); Urine Urobilinogen Normal (Normal); Urine WBC >50 /HPF (<5); Urine WBC Clump Rare /HPF (None Seen); Urine pH 6.5 (5.0-7.0)
[2024-08-17 07:05] LABS: ALT/SGPT 18 U/L (13-56); Albumin 3.4 g/dL (3.4-5.0); Alkaline Phosphatase 86 U/L (45-117); Anion Gap 5.7 mEq/L (5.0-15.0); BUN Blood Urea Nitrogen 18 mg/dL (7-18); Bicarbonate 28 mEq/L (21-32); Bilirubin Total 0.4 mg/dL (0.2-1.0); Globulin 3.3 g/dL (2.3-3.5); Glomerular Filtration Rate 72 ml/min (=/>90); Glucose Level 97 mg/dL (74-106); Lipase 37 U/L (13-75); Potassium 3.7 mEq/L (3.5-5.1); Protein, Total 6.7 g/dL (6.4-8.2); Sodium Level 142 mEq/L (136-145)
[2024-08-17 07:08] LABS: AST/SGOT < 10 U/L (15-37)
--- NOTE | 2024-08-17 07:40 | RAD REPORT ---
EXAMINATION: Abdomen Pelvis W Contrast CLINICAL INDICATION: Female, 39 years old.ABD PAIN TECHNIQUE: CT abdomen and pelvis was performed, after the administration of IV contrast, as [facility]. Axial, sagittal and coronal reconstructions were obtained. One or more of the following dose reduction techniques were used: Automated exposure control, adjustment of the mA and/o r kV according to patient size, and/or iterative reconstruction. Unless otherwise specified, incidental findings do not require dedicated imaging follow-up. [id number]. COMPARISON: 05/25/2019 FINDINGS: LOWER CHEST: No acute process identified.No significant pericardial effusion. Mild circumferential th ickening of the distal esophagus which could reflect esophagitis. UPPER GI: John-en-Y gastric bypass. LIVER: No significant focal abnormality. GALLBLADDER/BILE DUCTS: No biliary ductal dilatation.? PANCREAS: No mass, ductal dilation, or thuy-pancreatic fluid. SPLEEN: Mild splenomegaly. ADRENALS: No adrenal masses. KIDNEYS AND URETERS: Mild to moderate right-sided hydroureteronephrosis. No obstructing stone is iden tified. Atrophic right kidney.No suspicious renal mass.No renal calculi.No ureteral calculi. ABDOMINAL AORTA AND OTHER VESSELS: Normal caliber aorta and IVC. PERITONEUM: No abnormal free fluid. No free air. LYMPH NODES: No pathologic lymphadenopathy. ABDOMINAL WALL: Unremarkable SMALL BOWEL/COLON: Small bowel has normal course and caliber. No colonic wall thickening or pericolon ic inflammatory changes.Normal appendix. URINARY BLADDER: Underdistended but grossly unremarkable. REPRODUCTIVE ORGANS: No pathologic process. MUSCULOSKELETAL: No acute or suspicious osseous abnormality. ADDITIONAL FINDINGS: None. IMPRESSION: New mild to moderate right-sided hydroureteronephrosis with atrophic right kidney. No obstructing sto ne or mass is identified. This could be secondary to a ureteral stricture. Due to increased right renal atrophy, this is favored to represent a long-standing finding. No definite acute process.
--- NOTE | 2024-08-17 08:05 | ER ---
Nurse's Notes [facility] Name: Janine Blood Age: 39 yrs Sex: Female : 1985 Arrival Date: 08/17/2024 Time: 06:18 Bed 15 Private MD: Diagnosis: UTI/ Urinary tract infection, site not specified Presentation: 08/17 06:34 Chief complaint: Patient states: started having sharp pain in my pelvic area and lower vc1 back with burning with urination. Coronavirus screen: Client denies travel out of the [place] in the last 14 days. At this time, the client does not indicate any symptoms associated with coronavirus-19. Ebola Screen: Patient negative for fever greater than or equal to 101.5 degrees Fahrenheit, and additional compatible Ebola Virus Disease symptoms Patient denies exposure to infectious person. Patient denies travel to an Ebola-affected area in the 21 days before illness onset. No symptoms or risks identified at this time. Initial Sepsis Screen: Does the patient meet any 2 criteria? No. Patient's initial sepsis screen is negative. Does the patient have a suspected source of infection? No. Patient's initial sepsis screen is negative. Risk Assessment: Do you want to hurt yourself or someone else? Patient reports no desire to harm self or others. Onset of symptoms was August 16, 2024. 06:34 Method Of Arrival: Ambulatory vc1 06:34 Acuity: GOLDEN 3 vc1 Triage Assessment: 06:39 General: Appears in no apparent distress. uncomfortable, obese, Behavior is calm, vc1 cooperative, appropriate for age. Pain: Complains of pain in left low back, right low back and groin Pain does not radiate. Pain currently is 5 out of 10 on a pain scale. at worst was 9 out of 10 on a pain scale. Quality of pain is described as sharp, Pain began 1 day ago. EENT: No deficits noted. No signs and/or symptoms were reported regarding the EENT system. Neuro: Level of Consciousness is awake, alert, obeys commands, Oriented to person, place, time, situation, Appropriate for age. Cardiovascular: Capillary refill < 3 seconds Patient's skin is warm and dry. Respiratory: Airway is patent Respiratory effort is even, unlabored, Respiratory pattern is regular, symmetrical. GI: No deficits noted. No signs and/or symptoms were reported involving the gastrointestinal system. : Reports burning with urination, pain in right in left in suprapubic area in lower back with urination. Derm: Skin is intact, is healthy with good turgor, Skin is dry, Skin is normal, Skin temperature is warm. Musculoskeletal: Circulation, motion, and sensation intact. Range of motion: intact in all extremities. 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 - Infectious Disease History:: Denies. - Social history:: Patient/guardian denies using alcohol, street drugs, IV drugs, caffeine, Smoking status: Patient reports the use of cigarette tobacco products, smokes one-half pack cigarettes per day. - Family history:: not pertinent. Screenin:37 [facility] ED Fall Risk Assessment (Adult) History of falling in the last 3 months, vc1 including since admission No falls in past 3 months (0 pts) Confusion or Disorientation No (0 pts) Intoxicated or Sedated No (0 pts) Impaired Gait No (0 pts) Mobility Assist Device Used No (0 pt) Altered Elimination Yes (1 pt) Score/Fall Risk Level 0 - 2 = Low Risk Oriented to surroundings, Maintained a safe environment, Educated pt \T\ family on fall prevention, incl call for assistance when getting out of bed, Provided non-skid footwear, Hourly rounding (assess needs \T\ fall precautionary measures) done. Abuse screen: Denies threats or abuse. Nutritional screening: No deficits noted. Tuberculosis screening: No symptoms or risk factors identified. Assessment: 06:40 : Reports burning with urination, since 2 days pain pelvic pain that radiates to br2 lower back. 07:15 Reassessment: Patient appears in no apparent distress at this time. Patient and/or db family updated on plan of care and expected duration. Pain level reassessed. Patient is alert, oriented x 3, equal unlabored respirations, skin warm/dry/pink. 08:25 Reassessment: Patient appears in no apparent distress at this time. Patient and/or db family updated on plan of care and expected duration. Pain level reassessed. Patient is alert, oriented x 3, equal unlabored respirations, skin warm/dry/pink. Reassessment: Patient states feeling better. Patient states symptoms have improved. General: Appears in no apparent distress. comfortable, Behavior is calm, cooperative. Vital Signs: 06:34 BP 114 / 83; Pulse 65; Resp 15; Pulse Ox 100% ; Pain 5/10; vc1 06:46 Weight 93.44 kg; Height 5 ft. 4 in. ; vc1 07:15 BP 100 / 73; Pulse 56; Resp 16; Pulse Ox 98% on R/A; db 08:19 BP 107 / 83; Pulse 71; Resp 18; Pulse Ox 100% ; db 06:46 Body Mass Index 35.36 (93.44 kg, 162.56 cm) vc1 06:34 Pain Scale: Adult vc1 [place] Coma Score: 06:43 Eye Response: spontaneous(4). Motor Response: obeys commands(6). Verbal Response: sp4 oriented(5). Total: 15. ED Course: 06:20 Patient arrived in ED. [id number] 06:21 Betito Abdul MD is Attending Physician. sp4 06:25 Laury Lares, TRE is Primary Nurse. br2 06:30 Inserted saline lock: 20 gauge in right antecubital area, using aseptic technique. br2 Blood collected. Flushed with 10 mL NS. 06:36 Triage completed. vc1 06:36 Arm band placed on right wrist. vc1 06:38 Patient has correct armband on for positive identification. Bed in low position. Call vc1 light in reach. Provided Education on: plan of care. Pulse ox on. NIBP on. 06:39 CBC with Diff Sent. br2 06:39 CMP Sent. br2 06:40 Lipase Sent. br2 06:40 Test, Urine Sent. br2 06:40 Urinalysis w/ reflexes Sent. br2 07:03 Attending Physician role handed off by Betito Abdul MD rt 07:03 Pedro Begum MD is Attending Physician. rt 07:07 CMP Sent. br2 07:07 Lipase Sent. br2 07:07 Urine Culture Sent. br2 07:23 CT Abd/Pelvis - IV Contrast Only In Process Unspecified. EDMS 08:25 Warm blanket given. Pillow given. db 08:25 No provider procedures requiring assistance completed. IV discontinued, intact, db bleeding controlled, No redness/swelling at site. Administered Medications: 07:06 Drug: Dicyclomine IM 20 mg IM once Route: IM; Site: right deltoid; br2 08:58 Follow up: Response: No adverse reaction db 07:06 Drug: Ketorolac IVP 30 mg IVP once Route: IVP; Site: right antecubital; br2 08:57 Follow up: Response: No adverse reaction db 07:07 Drug: NS 0.9% IV 1000 ml IV at 1000 ml once; to be given as a bolus over 60 minutes br2 Route: IV; Rate: 1000 ml; Site: right antecubital; 08:58 Follow up: Response: No adverse reaction; IV Status: Completed infusion; IV Intake: db 1000ml 07:07 Drug: morphine IVP or IV 4 mg IVP once over 4 mins Route: IVP; Infused Over: 4 mins; br2 Site: right antecubital; 08:58 Follow up: Response: No adverse reaction db 07:07 Drug: Droperidol IVP 2.5 mg IVP once Route: IVP; Site: right antecubital; br2 08:58 Follow up: Response: No adverse reaction db 07:07 Drug: Ondansetron IVP 8 mg IVP once; over 2 minutes Route: IVP; Site: right antecubital;br2 09:01 Follow up: Response: No adverse reaction db Medication: 06:38 VIS not applicable for this client. vc1 Intake: 08:58 IV: 1000ml; Total: 1000ml. db Outcome: 08:04 Discharge ordered by . rt 08:25 Discharge instructions given to patient, Instructed on discharge instructions, follow db up and referral plans. Prescriptions given X 1, 08:56 Discharged to home ambulatory, db 08:56 Condition: stable 09:01 Patient left the ED. db Signatures: Dispatcher [employer] EDMS Yenifer [id number] Meghana Parada RN RN vc1 Amy Ya, RN RN db Pedro Begum MD MD rt Betito Abdul MD MD sp4 Laury Lares, TRE RN br2
--- NOTE | 2024-08-17 08:05 | EDPHYS ---
Physician Documentation [facility] Name: Janine Blood Age: 39 yrs Sex: Female : 1985 Arrival Date: 08/17/2024 Time: 06:18 Bed 15 Private MD: ED Physician Pedro Begum HPI: 08/17 06:21 This 39 yrs old Female presents to ER via Unassigned with complaints of sp4 Pelvic Pain. 06:43 39-year-old female presents with moderate pelvic pain, denied vomiting, denied fever, sp4 denied vaginal discharge, reports pain and burning with urination. Patient has history of Essure Coils . 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 - Infectious Disease History:: Denies. - Social history:: Patient/guardian denies using alcohol, street drugs, IV drugs, caffeine, Smoking status: Patient reports the use of cigarette tobacco products, smokes one-half pack cigarettes per day. - Family history:: not pertinent. ROS: 06:43 Constitutional: Negative for fever, chills, and weight loss, positive pelvic pain sp4 positive dysuria 06:43 All other systems are negative, Exam: 06:43 Constitutional: This is a well developed, well nourished patient who is awake, alert, sp4 and in no acute distress. Head/Face: Normocephalic, atraumatic. Eyes: Pupils equal round and reactive to light, extra-ocular motions intact. Lids and lashes normal. Conjunctiva and sclera are not injected. Cornea within normal limits. Periorbital areas with no swelling, redness, or edema. ENT: Nares patent. No nasal discharge, no septal abnormalities noted. Tympanic membranes are normal and external auditory canals are clear. Oropharynx with no redness, swelling, or masses, exudates, or evidence of obstruction, uvula midline. Mucous membranes moist. Neck: Trachea midline, no thyromegaly or masses palpated, and no cervical lymphadenopathy. Supple, full range of motion without nuchal rigidity, or vertebral point tenderness. Chest/axilla: Normal chest wall appearance and motion. Nontender with no deformity. No lesions are appreciated. Cardiovascular: Regular rate and rhythm with a normal S1 and S2. No gallops, murmurs, or rubs. Normal PMI, no JVD. No pulse deficits. Respiratory: Lungs have equal breath sounds bilaterally, clear to auscultation and percussion. No rales, rhonchi or wheezes noted. No increased work of breathing, no retractions or nasal flaring. Abdomen/GI: Soft, with normal bowel sounds. No distension or tympany. Positive guarding, positive bilateral pelvic tenderness, positive bilateral lower abdominal tenderness no rebound. Back: No spinal tenderness. No costovertebral tenderness. Skin: Warm, dry with normal turgor. Normal color with no rashes, no lesions, and no evidence of cellulitis. MS/ Extremity: Pulses equal, no cyanosis. Neurovascular intact. Full, normal range of motion. Neuro: Awake and alert, GCS 15, oriented to person, place, time, and situation. Cranial nerves II-XII grossly intact. Motor strength 5/5 in all extremities. Sensory grossly intact. Psych: Awake, alert, with orientation to person, place and time. Behavior, mood, and affect are within normal limits Vital Signs: 06:34 BP 114 / 83; Pulse 65; Resp 15; Pulse Ox 100% ; Pain 5/10; vc1 06:46 Weight 93.44 kg; Height 5 ft. 4 in. ; vc1 07:15 BP 100 / 73; Pulse 56; Resp 16; Pulse Ox 98% on R/A; db 08:19 BP 107 / 83; Pulse 71; Resp 18; Pulse Ox 100% ; db 06:46 Body Mass Index 35.36 (93.44 kg, 162.56 cm) vc1 06:34 Pain Scale: Adult vc1 [place] Coma Score: 06:43 Eye Response: spontaneous(4). Motor Response: obeys commands(6). Verbal Response: sp4 oriented(5). Total: 15. MDM: 06:24 Medical Screening Exam initiated sp4 06:43 Differential diagnosis: appendicitis, endometriosis, kidney stone, menometrorrhagia, sp4 menorrhea, uterine fibroids, urinary tract infection. Data reviewed: vital signs, nurses notes, lab test result(s), radiologic studies, CT scan. Consideration of Admission/Observation Escalation of care including admission/observation considered. Transition of care: After a detail discussion of the patient's case, care is transferred to Pedro Begum MD. 09:30 Independent interpretation of the following test(s) in the Emergency Department CT rt Scan: My interpretation is No ureterolithiasis seen on my interpretation of CT scan images. Care significantly affected by the following chronic conditions: Chronic hydronephrosis. Counseling: I had a detailed discussion with the patient and/or guardian regarding the historical points, exam findings, and any diagnostic results supporting the discharge/admit diagnosis, lab results, radiology results, the need for outpatient follow up, to return to the emergency department if symptoms worsen or persist or if there are any questions or concerns that arise at home. Response to treatment: the patient's symptoms have mildly improved after treatment. 08/17 06:22 Order name: CBC with Diff sp4 08/17 06:22 Order name: CMP; Complete Time: 07:49 sp4 08/17 06:22 Order name: Lipase; Complete Time: 07:49 sp4 08/17 06:22 Order name: Test, Urine; Complete Time: 07:49 sp4 08/17 06:22 Order name: Urinalysis w/ reflexes; Complete Time: 07:49 sp4 08/17 07:01 Order name: Urine Culture EDKY 08/17 08:52 Order name: CBC Smear Scan EDKY 08/17 06:41 Order name: CT Abd/Pelvis - IV Contrast Only; Complete Time: 07:49 sp4 08/17 06:22 Order name: IV Saline Lock; Complete Time: 06:39 sp4 08/17 06:22 Order name: Labs collected and sent; Complete Time: 06:39 sp4 Administered Medications: 07:06 Drug: Dicyclomine IM 20 mg IM once Route: IM; Site: right deltoid; br2 08:58 Follow up: Response: No adverse reaction db 07:06 Drug: Ketorolac IVP 30 mg IVP once Route: IVP; Site: right antecubital; br2 08:57 Follow up: Response: No adverse reaction db 07:07 Drug: NS 0.9% IV 1000 ml IV at 1000 ml once; to be given as a bolus over 60 minutes br2 Route: IV; Rate: 1000 ml; Site: right antecubital; 08:58 Follow up: Response: No adverse reaction; IV Status: Completed infusion; IV Intake: db 1000ml 07:07 Drug: morphine IVP or IV 4 mg IVP once over 4 mins Route: IVP; Infused Over: 4 mins; br2 Site: right antecubital; 08:58 Follow up: Response: No adverse reaction db 07:07 Drug: Droperidol IVP 2.5 mg IVP once Route: IVP; Site: right antecubital; br2 08:58 Follow up: Response: No adverse reaction db 07:07 Drug: Ondansetron IVP 8 mg IVP once; over 2 minutes Route: IVP; Site: right antecubital;br2 09:01 Follow up: Response: No adverse reaction db Disposition Summary: 08/17/24 08:04 Discharge Ordered Notes: Location: Home rt Problem: new rt Symptoms: have improved rt Condition: Stable rt Diagnosis - UTI/ Urinary tract infection, site not specified rt Followup: rt - With: Private Physician - When: 2 - 3 days - Reason: Discharge Instructions: - Discharge Summary Sheet rt - Urinary Tract Infection, Adult rt Forms: - Medication Reconciliation Form rt - Antibiotic Education rt - Prescription Opioid Use rt - Patient Portal Instructions rt - Leadership Thank You Letter rt Prescriptions: - cefpodoxime 200 mg Oral tablet - take 1 tablet ORAL route every 12 hours with food; 14 tablet; Refills: 0, rt Product Selection Permitted Signatures: Dispatcher [employer] Meghana Obrien RN RN vc1 Pedro Begum MD MD rt Betito Abdul MD MD sp4 Laury Lares RN RN br2 Amy Ya RN db
[2024-08-17 08:51] LABS: Platelet Estimate ADEQ; White Blood Cell Scan OK (OK)
[2024-08-17 08:52] LABS: Blood Morphology Comment NOT SEEN (NOT SEEN)
[2024-08-17 09:31] VITALS: BP 107/83; O2SAT 100
== END 2024-08-17 09:01 | disposition home or self-care (01) ==
LOC: ER 06:18
DX: N39.0 Urinary tract infection, site not specified (principal); F17.210 Nicotine dependence, cigarettes, uncomplicated
CPT/HCPCS: 96361; 87088; 85025; 81001; 87086; 36415; 81025; 87077 ×2; 87186 ×2; 83690; 80053; 74177; 96375; 96372; 96374; 99284; Q9967; J0500; J2405 ×2; J1790; J7030